=== PATIENT | female | born 1970 | race Caucasian/White ===

== ENCOUNTER 2020-11-22 07:57 | Outpatient (REF) | payer OTHER, SELFPAY ==
--- NOTE | ~2020-11-22 | MM_ITS ---
EXAMINATION: MM SCREENING DIGITAL BREAST TOMOSYNTHESIS, BILATERAL CLINICAL INFORMATION: Screening. Asymptomatic. Prior history left excisional biopsy 2016 for ADH. The lifetime risk of breast cancer based on the Tyrer-Cuzick Model is 34%. COMPARISON: Mammography: 10/20/2019, 10/12/2018, 09/24/2017 TECHNIQUE: Digital breast tomosynthesis is performed in both the craniocaudal and mediolateral oblique views along with computer-aided detection (CAD). Synthesized 2D images are generated from the tomosynthesis. Additional bilateral exaggerated CC views are provided. FINDINGS: The breasts are heterogeneously dense, which may obscure small masses (ACR BI-RADS breast composition Category c). There are no significant masses, abnormal calcifications, or other abnormalities. Scattered bilateral calcifications are again noted similar in distribution. The axilla and skin contours are unremarkable. There are no significant changes from prior exams. MM/MM tomosynthesis screening BI IMPRESSION: No mammographic evidence of malignancy. ASSESSMENT: BI-RADS 2: Benign RECOMMENDATION: 1. Routine annual mammography screening. 2. The lifetime risk of breast cancer based on the Tyrer-Cuzick Model is 34%. Additional annual adjunct screening with breast MRI may be of benefit in women with a risk score of 20% or greater. This patient's information was entered into a reminder system with a target due date for their next mammogram.
== END 2020-11-22 07:58 | disposition home or self-care (01) ==
LOC: HO.MAMMO 07:57
PROVIDERS: Visit Provider Internal Medicine
DX: Z12.31 Encounter for screening mammogram for malignant neoplasm of breast (principal)
CPT/HCPCS: 77063; 77067

== ENCOUNTER 2021-03-11 09:49 | Outpatient (REF) | payer OTHER, SELFPAY ==
[2021-03-11 11:29] LABS: Alanine Aminotransferase 40 U/L (0-31); Anion Gap 13 (12-20); Aspartate Amino Transferase 29 U/L (5-31); Blood Urea Nitrogen 13 mg/dL (9-16); Calcium 9.8 mg/dL (8.4-10.2); Carbon Dioxide 25 mmol/L (22-29); Chloride 108 mmol/L (96-108); Cholesterol 165 mg/dL; Estimated Glomerular Filt Rate > 60; Glucose Fasting 117 mg/dL (60-99); HDL Cholesterol 42 mg/dL; LDL Cholesterol Calculated 80 mg/dl; Potassium 4.9 mmol/L (3.3-5.1); Sodium 141 mmol/L (135-145); Triglycerides 218 mg/dL
[2021-03-11 11:39] LABS: Estimated Average Glucose 148 mg/dL; Hemoglobin A1c % 6.8 %
== END 2021-03-11 09:50 | disposition home or self-care (01) ==
LOC: HO.HMGCLDS 09:49
PROVIDERS: PCP Internal Medicine; Visit Provider Internal Medicine
DX: E11.29 Type 2 diabetes mellitus with other diabetic kidney complication (principal); E78.2 Mixed hyperlipidemia; I10 Essential (primary) hypertension; R80.9 Proteinuria, unspecified
CPT/HCPCS: 36415; 80048; 80061; 83036; 84450; 84460

== ENCOUNTER 2021-06-04 08:44 | Outpatient (REF) | payer OTHER, SELFPAY | END 2021-06-04 08:45 | disposition home or self-care (01) | LOC: HO.LAB 08:44 | PROVIDERS: PCP Internal Medicine; Referring Provider Internal Medicine; Visit Provider Surgery | DX: L98.9 Disorder of the skin and subcutaneous tissue, unspecified (principal) | CPT/HCPCS: 11104; 11420; 88305; 99202 ==

== ENCOUNTER → 2021-06-11 12:33 | Outpatient (BNVA) | payer OTHER, SELFPAY | PROVIDERS: PCP Internal Medicine; Referring Provider Internal Medicine; Visit Provider Surgery | DX: Z48.817 Encounter for surgical aftercare following surgery on the skin and subcutaneous tissue (principal); Z87.2 Personal history of diseases of the skin and subcutaneous tissue | CPT/HCPCS: 99212 ==

== ENCOUNTER 2021-07-11 07:58 | Outpatient (REF) | payer OTHER, SELFPAY ==
[2021-07-11 11:27] LABS: Estimated Average Glucose 128 mg/dL; Hemoglobin A1C 150.6977 umol/L; Hemoglobin A1c % 6.1 %
[2021-07-11 11:52] LABS: Alanine Aminotransferase 28 U/L (0-31); Anion Gap 15 (12-20); Aspartate Amino Transferase 24 U/L (5-31); Blood Urea Nitrogen 10 mg/dL (9-16); Calcium 9.6 mg/dL (8.4-10.2); Carbon Dioxide 25 mmol/L (22-29); Chloride 103 mmol/L (96-108); Cholesterol 160 mg/dL; Estimated Glomerular Filt Rate > 60; Glucose Fasting 119 mg/dL (60-99); HDL Cholesterol 40 mg/dL; LDL Cholesterol Calculated 86 mg/dl; Potassium 4.1 mmol/L (3.3-5.1); Sodium 139 mmol/L (135-145); Triglycerides 174 mg/dL
[2021-07-11 11:57] LABS: Creatinine Urine 45.33 mg/dL; Microalbum/Creatinine Ratio Ur 13.2 ug/mg cr
== END 2021-07-11 07:59 | disposition home or self-care (01) ==
LOC: HO.HMGCLDS 07:58
PROVIDERS: PCP Internal Medicine; Visit Provider Internal Medicine
DX: E11.29 Type 2 diabetes mellitus with other diabetic kidney complication (principal); E78.2 Mixed hyperlipidemia; R80.9 Proteinuria, unspecified; I10 Essential (primary) hypertension
CPT/HCPCS: 36415; 80048; 80061; 82043; 83036; 84450; 84460

== ENCOUNTER 2021-12-07 07:18 | Outpatient (REF) | payer OTHER, SELFPAY ==
--- NOTE | ~2021-12-07 | MM_ITS ---
EXAMINATION: MM SCREENING DIGITAL BREAST TOMOSYNTHESIS, BILATERAL CLINICAL INFORMATION: Screening. Asymptomatic. History left ADH status post excision 2015. The lifetime risk of breast cancer based on the Tyrer-Cuzick Model is 33%. COMPARISON: Mammography: 11/22/2020, 10/20/2019, 10/12/2018 TECHNIQUE: Digital breast tomosynthesis is performed in both the craniocaudal and mediolateral oblique views along with computer-aided detection (CAD). Synthesized 2D images are generated from the tomosynthesis. Additional left CC view is provided. FINDINGS: The breasts are heterogeneously dense, which may obscure small masses (ACR BI-RADS breast composition Category c). There is minor scarring on left consistent with the prior excisional biopsy. Parenchymal pattern is similar to prior studies. There is no interval mass or architectural abnormality. There are scattered punctate calcifications and some coarse and rim calcifications again noted. The axilla and skin contours are unremarkable. No significant changes. MM/MM tomosynthesis screening BI IMPRESSION: No mammographic evidence of malignancy. ASSESSMENT: BI-RADS 2: Benign RECOMMENDATION: Routine annual mammography screening. This patient's information was entered into a reminder system with a target due date for their next mammogram.
== END 2021-12-07 07:19 | disposition home or self-care (01) ==
LOC: HO.MAMMO 07:18
PROVIDERS: Visit Provider Internal Medicine
DX: Z12.31 Encounter for screening mammogram for malignant neoplasm of breast (principal)
CPT/HCPCS: 77063; 77067

== ENCOUNTER 2022-04-29 10:24 | Outpatient (REF) | payer OTHER, SELFPAY ==
[2022-04-29 12:19] LABS: Alanine Aminotransferase 37 U/L (0-31); Anion Gap 18 (12-20); Aspartate Amino Transferase 22 U/L (5-31); Blood Urea Nitrogen 11 mg/dL (9-16); Calcium 9.7 mg/dL (8.4-10.2); Carbon Dioxide 24 mmol/L (22-29); Chloride 105 mmol/L (96-108); Cholesterol 179 mg/dL; Estimated Glomerular Filt Rate > 60; Glucose Fasting 121 mg/dL (60-99); HDL Cholesterol 42 mg/dL; LDL Cholesterol Calculated 75 mg/dl; Potassium 4.9 mmol/L (3.3-5.1); Sodium 142 mmol/L (135-145); Triglycerides 311 mg/dL
[2022-04-29 12:28] LABS: Vitamin D 25-OH Total 62.3 ng/mL (>30)
== END 2022-04-29 10:25 | disposition home or self-care (01) ==
LOC: HO.HMGCLDS 10:24
PROVIDERS: PCP Internal Medicine; Visit Provider Internal Medicine
DX: E11.29 Type 2 diabetes mellitus with other diabetic kidney complication (principal); E78.2 Mixed hyperlipidemia; I10 Essential (primary) hypertension; R80.9 Proteinuria, unspecified; Z78.0 Asymptomatic menopausal state
CPT/HCPCS: 36415; 80048; 80061; 82306; 84450; 84460

== ENCOUNTER 2022-10-28 09:29 | Outpatient (REF) | payer OTHER, SELFPAY ==
[2022-10-28 12:26] LABS: Estimated Average Glucose 143 mg/dL; Hemoglobin A1c % 6.6 %
[2022-10-28 12:49] LABS: Creatinine Urine 19.96 mg/dL; Microalbumin Urine < 5.0 mg/L
[2022-10-28 16:45] LABS: Alanine Aminotransferase 41 U/L (0-31); Anion Gap 15 (12-20); Aspartate Amino Transferase 26 U/L (5-31); Blood Urea Nitrogen 8 mg/dL (9-16); Calcium 9.4 mg/dL (8.4-10.2); Carbon Dioxide 27 mmol/L (22-29); Chloride 106 mmol/L (96-108); Cholesterol 149 mg/dL; Estimated Glomerular Filt Rate > 60; Glucose Fasting 129 mg/dL (60-99); HDL Cholesterol 46 mg/dL; LDL Cholesterol Calculated 74 mg/dl; Potassium 4.6 mmol/L (3.3-5.1); Sodium 143 mmol/L (135-145); Triglycerides 148 mg/dL
[2022-10-28 16:53] LABS: Vitamin D 25-OH Total 56.7 ng/mL (>30)
== END 2022-10-28 09:30 | disposition home or self-care (01) ==
LOC: HO.HMGCLDS 09:29
PROVIDERS: PCP Internal Medicine; Visit Provider Internal Medicine
DX: E11.29 Type 2 diabetes mellitus with other diabetic kidney complication (principal); R80.9 Proteinuria, unspecified; I10 Essential (primary) hypertension; E78.2 Mixed hyperlipidemia; N95.9 Unspecified menopausal and perimenopausal disorder; Z78.0 Asymptomatic menopausal state
CPT/HCPCS: 36415; 80048; 80061; 82043; 82306; 83036; 84450; 84460

== ENCOUNTER 2022-11-04 14:30 | Outpatient (AMB) | payer OTHER, SELFPAY ==
--- NOTE | 2022-11-04 14:58 | A.OFFPC_ITS ---
Vital Signs 11/04/22 15:34 Height 5 ft 8 in Weight 175 lb BMI 26.6 BP 128/70 Blood Pressure Location Lt brachial Position Sitting Pulse 77 Pulse Source Pulse Oximeter Pulse Oximetry (%) 97 Oxygen Delivery Method Room Air Intake Visit Reasons: ffup dm ,lipids 6 Month Intake Note: Pt is here today for her DM and lipids Allergies No Known Allergies [No Known Allergies*] Allergy (Verified 05/05/23 14:47) seasonal Allergy (Unknown, Uncoded 05/05/23 14:47) sneezing Medication List - Last Reconciled 05/05/23 by Sveta Swenson MD ascorbic acid (vitamin C) 250 mg PO DAILY atorvastatin 10 mg PO DAILY blood sugar diagnostic (FreeStyle Lite Strips) Check fasting blood sugar twice a day before meals blood sugar diagnostic (FreeStyle Lite Strips) check blood glucose twice a day before meals blood-glucose meter (FreeStyle Lite Meter kit) Check Fasting blood sugar twice a day before meals, a.m. and p.m. cetirizine (Zyrtec) 10 mg PO DAILY PRN cholecalciferol (vitamin D3) 25 mcg PO DAILY estradiol 0.01%(0.1mg/gram) (Estrace) 1 g vaginal 3XW lancets (FreeStyle Lancets) Check fasting blood sugar before meals, a.m. and p.m. lisinopril 5 mg PO DAILY metformin 1,000 mg PO BID 90 days multivitamin 1 tab PO DAILY omega-3 acid ethyl esters 2 caps PO BID Tobacco use date assessed: 11/04/22 HPI ffup dm ,lipids 6 Month HPI Details 53-year-old lady here today for follow-u p on her diabetes mellitus, hypertension dyslipidemia. She has been compliant with taking her medications, has no complaints at present time. [facility] Medical History (Updated 05/05/23 @ 17:53 by Sveta Swenson MD) Postmenopausal atrophic vaginitis Dyspareunia in female Loss of libido Skin lesion of neck Colon cancer screening Duodenal bulb ulcer History of uterine prolapse Seasonal allergies Type 2 diabetes mellitus with microalbuminuria, without long-term current use of insulin Essential hypertension Mixed dyslipidemia Surgical History History of tubal ligation History of tonsillectomy History of lumpectomy of left breast History of left breast biopsy History of rhinoplasty History of total vaginal hysterectomy Family History Father History of drug overdose Substance use disorder Mother Cervical cancer Substance use disorder Mental health disorder Brother Diabetes mellitus Maternal Grandmother Breast cancer Maternal Aunt Uterine cancer Social History Housing: House Alcohol intake: current Alcohol intake frequency: holidays/special occasions only Patient Tobacco Use Status: Former Tobacco user Years Smoked: 20 yrs e-Cigarette/Vaping Use: Currently Using service: No Current occupational status: previously employed Cognitive needs: No Hearing needs: No Vision needs: Yes Questionnaire PHQ-9 Over the last 2 weeks, how often have you been bothered by any of the following problems? 1. Little interest or pleasure in doing things: not at all 2. Feeling down, depressed, or hopeless: not at all 3. Trouble falling or staying asleep, or sleeping too much: several days 4. Feeling tired or having little energy: several days 5. Poor appetite or overeating: several days 6. Feeling bad about yourself - or that you are a failure or have let yourself or your family down: not at all 7. Trouble concentrating on things, such as reading the newspaper or watching television: not at all 8. Moving or speaking so slowly that other people could have noticed. Or the opposite - being so fidgety or restless that you have been moving around a lot more than usual: not at all 9. Thoughts that you would be better off or of hurting yourself in some way: not at all Total score: 3 Depression Screening Interpretation: Negative [id number] - PHQ-9 Billing: Yes Source: Developed by Drs. Malik Hall, Chela Worley, Arsalan Morris and colleagues, with an educational sid from [employer]. Thrive Questionnaire Declines Thrive assessment: No Date Thrive assessed: 11/04/22 I am a: Patient What is your living situation today?: I have a steady place to live Within the past 12 months, did the food you bought not last and you didn't have the money to get more?: Never true Within the past 12 months, did you worry whether your food would run out before you got money to buy more?: Never true Do you have trouble paying for medicines?: No Do you have trouble getting transportation to medical appointments?: No Do you have trouble paying your heating and electricity bill?: No Do you have trouble taking care of your child, family member or friend?: No Do you have trouble with day-to-day activities such as bathing, preparing meals, shopping, managing finances, etc.?: No Are you currently unemployed and looking for a job?: No Are you interested in more education?: No ZIGGY-7 AMB Questionnaire ZIGGY-7 Date ZIGGY - 7 assessed: 11/04/22 Feeling nervous, anxious, or on edge: 0 = Not at all Not being able to stop or control worryin = Several days Worrying too much about different things: 1 = Several days Trouble relaxin = Not at all Being so restless that it is hard to sit still: 0 = Not at all Becoming easily annoyed or irritable: 0 = Not at all Feeling afraid as if something awful might happen: 0 = Not at all Total ZIGGY-7 score (0-4 normal; 5-9 mild; 10-14 moderate; 15-21 severe): 2 Source: Developed by Drs. Malik Hall, Chela Worley, Arsalan Morris and colleagues, with an educational sid from [employer]. Review of Systems Const Denies body aches, Denies fatigue, Denies fever(s) and Denies weakness Eyes Reports no additional complaints and Denies change in vision ENT Reports no additional complaints Card Denies chest pain, Denies lightheadedness, Denies palpitations and Denies dyspnea Resp Denies cough and Denies dyspnea GI Denies abdominal pain, Denies change in bowel habits and Denies heartburn Denies urinary frequency, Denies dysuria and Denies urinary urgency Musc Reports no additional complaints Skin/Breast Denies lesions and Denies rash Neuro Denies Sensory deficit (Neuro) and Denies weakness Endo Denies fatigue, Denies polydipsia, Denies polyuria and Denies palpitations Efrem/Lymph Reports no additional complaints Physical exam (Primary Care) Vital Signs: Last Vital Signs Pulse 77 11/04/22 15:34 BP 128/70 11/04/22 15:34 Pulse Ox 97 11/04/22 15:34 Oxygen Delivery Method Room Air 11/04/22 15:34 BMI result Body Mass Index 26.6 Tobacco/Smoking Status: Tobacco use Status Tobacco use date assessed 11/04/22 11/04/22 15:00 Patient Tobacco Use Status Former Tobacco user 11/04/22 15:00 e-Cigarette/Vaping Use Currently Using 11/04/22 15:00 PHQ-9: PHQ-9 Score PHQ-9: Total score 3 11/04/22 16:25 Depression Screening Interpretation: Negative Thrive Assessment: Date of Thrive Assessment Date Thrive assessed 11/04/22 11/04/22 15:37 Const Other: Alert oriented x3, no acute distress noted ambulatory with normal gait Orientation/consciousness: patient oriented x3 Neck Other: Supple, no lymphadenopathy, thyroid gland nonpalpable Neck: Yes no meningeal signs Resp Auscultation: clear to auscultation bilaterally Cardio Other: S1-S2 present regular rate with GI Inspection: Yes normal to inspection Palpation (GI): Soft to palpation, nontender, no guarding and no masses Skin General skin exam: no rashes or lesions noted Neuro General: patient oriented x3, gait normal, moves all extremities, Normal light touch and pain sensation, no meningeal signs, no focal motor deficits and CN's II-XI intact bilaterally Sensory Exam: No Sensory deficit (Neuro) Extrem General: Yes full ROM, Yes no joint enlargement, Yes no clubbing, cyanosis or edema, Yes no calf tenderness and Yes normal gait Results Reviewed Results Reviewed: ENTERED: 10/28/22 SIMONA REED: ORDERED: Met Prof Fast, AST, ALT, Lipid Panel, Vitamin D 25-OH Test Result Flag Reference Site Sodium 143 135-145 mmol/L Potassium 4.6 3.3-5.1 mmol/L CL 106 96-108 mmol/L CO2 27 22-29 mmol/L Gap 15 12-20 BUN 8 L 9-16 mg/dL Creat 0.66 0.5-1.4 mg/dL EGFR > 60 NOTE: For [place] individuals, multiply the result by 1.210. Chronic Kidney Disease: Estimated GFR < 60 mL/min/1.73m2 Severe Kidney Disease: Estimated GFR < 15 mL/min/1.73m2 FBS 129 H 60-99 mg/dL A fasting glucose of 126 mg/dl or greater on more than one occasion is considered diagnostic of diabetes. CA 9.4 8.4-10.2 mg/dL AST (GOT) 26 5-31 U/L ALT (GPT) 41 H 0-31 U/L Triglyceride 148 mg/dL Desirable Triglyceride: less than 150 mg/dL Borderline High Triglyceride 150-199 mg/dL High Triglyceride: 200-499 mg/dL Very High Triglyceride: greater than or equal to 5OO mg/dL Chol 149 mg/dL Desirable Cholesterol: less than 200 mg/dL Borderline High Cholesterol: 200-239 mg/dL High Cholesterol: greater than 239 mg/dL LDL Calculated 74 mg/dl Desirable LDL: less than 100 mg/dL Near Optimal/Above Optimal LDL: 110-129 mg/dL Borderline High LDL: 130-159 mg/dL High LDL: 160-189 mg/dL Very High LDL: greater than or equal to 190 mg/dL HDL 46 mg/dL Desirable HDL: greater than 40 mg/dL Note: This HDL assay may give artificially low results in patients with liver disease. Vit D 25-OH Tot 56.7 >30 ng/mL Health Based Reference Values* < 20 ng/mL Deficient 20-30 ng/mL Insufficient > 30 ng/mL Sufficient Laboratory Tests 10/28/22 09:46 Estimat Average Glucose 143 Hemoglobin A1c % 6.6 Assessment and Plan Assessment & Plan (1) Type 2 diabetes mellitus with microalbuminuria, without long-term current use of insulin: Code(s): E11.29 - Type 2 diabetes mellitus with other diabetic kidney complication; R80.9 - Proteinuria, unspecified Plan: Recent lab results reviewed with patient, with sugar and hemoglobin A1c stable and at goal. Continue metformin 1000 mg 1 tablet twice a day with meals. continue to check fasting blood sugar at home, maintain log and bring to next appointment for review. Reinforced diabetic diet and regular exercise with patient. Counseled regarding importance of yearly diabetes retinopathy screening. Patient advised to inspect feet daily, for any signs of injury, callus or infection. Compliance with diet and regular exercise again stressed. Blood pressure goal is less than 130/80, goal LDL is less than 100 and goal hemoglobin A1c is less than 7% follow-up appointment made in-5--months, after fasting labs done. (2) Essential hypertension: Code(s): I10 - Essential (primary) hypertension Plan: Blood pressure at goal of less than 130/80. Continue with current medication. Reinforced importance of following a low sodium diet, getting regular exercise, and lowering stress levels. (3) Mixed dyslipidemia: Code(s): E78.2 - Mixed hyperlipidemia Plan: Reviewed recent fasting lipid profile with patient with levels within normal . Continue with taking atorvastatin 10 mg daily and [place] 3 fatty acid supplements , in addition to adherence to low-cholesterol diet and regular exercise, at least 30 minutes 3 to 4 times a week. Advised patient to make healthy food choices, eat more fruits, vegetables, whole grains, wild caught fish and low-fat dairy. Limit amount of meat and fried or fatty food products, as well as processed foods and fast foods. Follow-up scheduled with repeat fasting lipid panel in 5 months. Orders: Orders Hemoglobin A1c 03/22/23 E11.29 - Type 2 diabetes mellitus with other diabetic kidney complication, R80.9 - Proteinuria, unspecified, I10 - Essential (primary) hypertension, E78.2 - Mixed hyperlipidemia, N95.9 - Unspecified menopausal and perimenopausal disorder Alanine Aminotransferase 03/22/23 E11.29 - Type 2 diabetes mellitus with other diabetic kidney complication, R80.9 - Proteinuria, unspecified, I10 - Essential (primary) hypertension, E78.2 - Mixed hyperlipidemia, N95.9 - Unspecified menopausal and perimenopausal disorder Basic Metabolic Panel Fasting 03/22/23 E11.29 - Type 2 diabetes mellitus with other diabetic kidney complication, R80.9 - Proteinuria, unspecified, I10 - Essential (primary) hypertension, E78.2 - Mixed hyperlipidemia, N95.9 - Unspecified menopausal and perimenopausal disorder Microalbumin, Random (w Creat) 03/22/23 E11.29 - Type 2 diabetes mellitus with other diabetic kidney complication, R80.9 - Proteinuria, unspecified, I10 - Essential (primary) hypertension, E78.2 - Mixed hyperlipidemia, N95.9 - Unspecified menopausal and perimenopausal disorder Aspartate Amino Transferase 03/22/23 E11.29 - Type 2 diabetes mellitus with other diabetic kidney complication, R80.9 - Proteinuria, unspecified, I10 - Essential (primary) hypertension, E78.2 - Mixed hyperlipidemia, N95.9 - Unspecified menopausal and perimenopausal disorder Lipid Panel 03/22/23 E11.29 - Type 2 diabetes mellitus with other diabetic kidney complication, R80.9 - Proteinuria, unspecified, I10 - Essential (primary) hypertension, E78.2 - Mixed hyperlipidemia, N95.9 - Unspecified menopausal and perimenopausal disorder Vitamin D 25-OH Total 03/22/23 E11.29 - Type 2 diabetes mellitus with other diabetic kidney complication, R80.9 - Proteinuria, unspecified, I10 - Essential (primary) hypertension, E78.2 - Mixed hyperlipidemia, N95.9 - Unspecified menopausal and perimenopausal disorder Coding Level of Care Code Est Pt Level 3 (98956) Diagnoses Type 2 diabetes mellitus with microalbuminuria, without long-term current use of insulin E11.29; R80.9 Essential hypertension I10 Mixed dyslipidemia E78.2
[2022-11-04 15:34] VITALS: BP 128/70; PULSE 77; O2SAT 97; BMI 26.6
== END 2022-11-04 16:26 | disposition home or self-care (01) ==
LOC: HO.HMGC 14:30
PROVIDERS: PCP Internal Medicine; Visit Provider Internal Medicine
DX: E11.29 Type 2 diabetes mellitus with other diabetic kidney complication (principal); R80.9 Proteinuria, unspecified; I10 Essential (primary) hypertension; E78.2 Mixed hyperlipidemia
CPT/HCPCS: 99213

== ENCOUNTER 2022-12-25 07:36 | Outpatient (REF) | payer OTHER, SELFPAY ==
--- NOTE | ~2022-12-25 | MM_ITS ---
EXAMINATION: MM SCREENING DIGITAL BREAST TOMOSYNTHESIS, BILATERAL CLINICAL INFORMATION: Screening. Asymptomatic. History left breast ADH status post excision, 2016. The lifetime risk of breast cancer based on the Tyrer-Cuzick Model is 33%. COMPARISON: Multiple prior mammography exams, most recent 12/07/2021. TECHNIQUE: Digital breast tomosynthesis is performed in both the craniocaudal and mediolateral oblique views along with computer-aided detection (CAD). Synthesized 2D images are generated from the tomosynthesis. FINDINGS: The breasts are heterogeneously dense, which may obscure small masses (ACR BI-RADS breast composition Category c). There are no significant masses, abnormal calcifications, or other abnormalities. No interval architectural abnormality. The axilla and skin contours are unremarkable. Again, there are scattered bilateral round and some punctate and coarse calcifications. Left breast has some interval calcifications posterior 6:00 left breast likely partly related to superimposed digital processing artifact pseudocalcification. Patient will be recalled for additional imaging with magnification views to fully characterize. MM/MM tomosynthesis screening BI IMPRESSION: Left: -Calcifications with probable superimposed digital processing artifact posterior central left breast. Right: -No mammographic evidence of malignancy. ASSESSMENT: BI-RADS 0: Incomplete - Need Additional Imaging Evaluation RECOMMENDATION: 1. Additional views left breast (magnification CC, magnification ML). 2. Radiology department staff will contact the patient for additional imaging. This patient's information was entered into a reminder system with a target due date for their next mammogram.
== END 2022-12-25 07:37 | disposition home or self-care (01) ==
LOC: HO.MAMMO 07:36
PROVIDERS: PCP Internal Medicine; Visit Provider Internal Medicine
DX: Z12.31 Encounter for screening mammogram for malignant neoplasm of breast (principal)
CPT/HCPCS: 77063; 77067

== ENCOUNTER 2023-01-11 14:30 | Outpatient (REF) | payer OTHER, SELFPAY ==
--- NOTE | ~2023-01-11 | MM_ITS ---
EXAMINATION: MM DIAGNOSTIC DIGITAL MAMMOGRAPHY, LEFT CLINICAL INFORMATION: Recall from screening for question of increased calcifications posterior central inferior left breast. Prior history left ADH status post excision 2015. COMPARISON: Prior mammography exams including most recent 12/25/2022. TECHNIQUE: Digital mammography is performed in the following views: Magnification CC, magnification ML. FINDINGS: The breasts are heterogeneously dense, which may obscure small masses (ACR BI-RADS breast composition Category c). There are a few fine punctate round calcifications in the posterior lower left breast likely stable from prior standard mammography exams without magnification. There is no ductal distribution or pleomorphic types. Results are discussed with the patient at time of visit. As a precaution given the prior history ADH, short interval follow-up left mammography will be requested to include magnification views. MM/MM added views LT IMPRESSION: Probable chronic stable benign calcifications lower posterior left breast. ASSESSMENT: BI-RADS 3: Probably Benign RECOMMENDATION: Diagnostic left mammography in 6 months. This patient's information was entered into a reminder system with a target due date for their next mammogram.
== END 2023-01-11 14:31 | disposition home or self-care (01) ==
LOC: HO.MAMMO 14:30
PROVIDERS: PCP Internal Medicine; Visit Provider Internal Medicine
DX: R92.1 Mammographic calcification found on diagnostic imaging of breast (principal)
CPT/HCPCS: 77065

== ENCOUNTER 2023-05-05 14:13 | Outpatient (AMB) | payer OTHER, SELFPAY ==
[2023-05-05 14:15] VITALS: BP 132/78; PULSE 78; O2SAT 98; BMI 26.6
--- NOTE | 2023-05-05 14:15 | A.OFFPC_ITS ---
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 Accompanied by: Self / Same As Patient Allergies No Known Allergies [No Known Allergies*] Allergy (Verified 05/05/23 14:47) seasonal Allergy (Unknown, Uncoded 05/05/23 14:47) sneezing Medication List - Last Reconciled 05/05/23 by Sveta Swenson MD ascorbic acid (vitamin C) 250 mg PO DAILY atorvastatin 10 mg PO DAILY blood sugar diagnostic (FreeStyle Lite Strips) Check fasting blood sugar twice a day before meals blood sugar diagnostic (FreeStyle Lite Strips) check blood glucose twice a day before meals blood-glucose meter (FreeStyle Lite Meter kit) Check Fasting blood sugar twice a day before meals, a.m. and p.m. cetirizine (Zyrtec) 10 mg PO DAILY PRN cholecalciferol (vitamin D3) 25 mcg PO DAILY estradiol 0.01%(0.1mg/gram) (Estrace) 1 g vaginal 3XW lancets (FreeStyle Lancets) Check fasting blood sugar before meals, a.m. and p.m. lisinopril 5 mg PO DAILY metformin 1,000 mg PO BID 90 days multivitamin 1 tab PO DAILY omega-3 acid ethyl esters 2 caps PO BID Tobacco use date assessed: 05/05/23 Dental Screening Dental Screen Date: 05/05/23 Did you have a dental visit in the last 12 months?: Yes Did you have a dental problem in the last 6 months where you did not have access to dental care?: No Was dental information given to patient?: Patient has dentist HPI Annual PE HPI Details 53-year-old lady with history of uterine and rectal prolapse status post total vaginal hysterectomy in 2016, has hypercholesterolemia, diabetes mellitus, and hypertension, here today for her physical exam. She has been feeling well, with no complaints at present time. Has been compliant with taking her medications, but not so much with exercise. She is up-to-date with her screening mammogram, recently seen by her [facility] for follow-up on her postmenopausal traffic vaginitis and loss of libido.. She is also up-to-date with her screening colonoscopy. [facility] Medical History (Updated 05/05/23 @ 17:53 by Sveta Swenson MD) Postmenopausal atrophic vaginitis Dyspareunia in female Loss of libido Skin lesion of neck Colon cancer screening Duodenal bulb ulcer History of uterine prolapse Seasonal allergies Type 2 diabetes mellitus with microalbuminuria, without long-term current use of insulin Essential hypertension Mixed dyslipidemia Surgical History History of tubal ligation History of tonsillectomy History of lumpectomy of left breast History of left breast biopsy History of rhinoplasty History of total vaginal hysterectomy Family History Father History of drug overdose Substance use disorder Mother Cervical cancer Substance use disorder Mental health disorder Brother Diabetes mellitus Maternal Grandmother Breast cancer Maternal Aunt Uterine cancer Social History Housing: House Alcohol intake: current Alcohol intake frequency: holidays/special occasions only Patient Tobacco Use Status: Former Tobacco user Years Smoked: 20 yrs e-Cigarette/Vaping Use: Currently Using service: No Current occupational status: previously employed Cognitive needs: No Hearing needs: No Vision needs: Yes Questionnaire PHQ-9 Over the last 2 weeks, how often have you been bothered by any of the following problems? 1. Little interest or pleasure in doing things: not at all 2. Feeling down, depressed, or hopeless: not at all 3. Trouble falling or staying asleep, or sleeping too much: not at all 4. Feeling tired or having little energy: not at all 5. Poor appetite or overeating: not at all 6. Feeling bad about yourself - or that you are a failure or have let yourself or your family down: not at all 7. Trouble concentrating on things, such as reading the newspaper or watching television: not at all 8. Moving or speaking so slowly that other people could have noticed. Or the opposite - being so fidgety or restless that you have been moving around a lot more than usual: not at all 9. Thoughts that you would be better off or of hurting yourself in some way: not at all Total score: 0 Depression Screening Interpretation: Negative 23599 - PHQ-9 Billing: Yes Source: Developed by Drs. Malik Hall, Chela Worley, Arsalan Morris and colleagues, with an educational sid from [employer] Thrive Questionnaire Date Thrive assessed: 05/05/23 I am a: Patient What is your living situation today?: I have a steady place to live Within the past 12 months, did the food you bought not last and you didn't have the money to get more?: Never true Within the past 12 months, did you worry whether your food would run out before you got money to buy more?: Never true Do you have trouble paying for medicines?: No Do you have trouble getting transportation to medical appointments?: No Do you have trouble paying your heating and electricity bill?: No Do you have trouble taking care of your child, family member or friend?: No Do you have trouble with day-to-day activities such as bathing, preparing meals, shopping, managing finances, etc.?: No Are you currently unemployed and looking for a job?: No Are you interested in more education?: No Please select the resources that you would like help with: None Currently or been in a relationship where the following occur: no concerns reported AUDIT C Alcohol Use Questionnaire (AUDIT-C) 1. How often do you have a drink containing alcohol?: Never 3. How often do you have six or more drinks on one occasion?: Never Total Score: 0 ZIGGY-7 AMB Questionnaire ZIGGY-7 Date ZIGGY - 7 assessed: 05/05/23 Feeling nervous, anxious, or on edge: 0 = Not at all Not being able to stop or control worryin = Not at all Worrying too much about different things: 0 = Not at all Trouble relaxin = Not at all Being so restless that it is hard to sit still: 0 = Not at all Becoming easily annoyed or irritable: 0 = Not at all Feeling afraid as if something awful might happen: 0 = Not at all Total ZIGGY-7 score (0-4 normal; 5-9 mild; 10-14 moderate; 15-21 severe): 0 Source: Developed by Chela Neumann Kurt Kroenke and colleagues, with an educational sid from [employer] Review of Systems Const Denies body aches, Denies fatigue, Denies fever(s) and Denies weakness Eyes Reports no additional complaints ENT Reports no additional complaints Card Denies chest pain, Denies lightheadedness, Denies palpitations and Denies dyspnea Resp Denies cough and Denies dyspnea GI Denies abdominal pain, Denies change in bowel habits and Denies heartburn Denies urinary frequency, Denies dysuria and Denies urinary urgency Musc Reports no additional complaints Skin/Breast Denies breast pain, Denies breast mass, Denies lesions and Denies rash Neuro Denies Sensory deficit (Neuro) and Denies weakness Psych Reports no additional complaints Endo Denies fatigue, Denies polydipsia, Denies polyuria and Denies palpitations Efrem/Lymph Reports no additional complaints Aller/Immun Reports no additional complaints Physical exam (Primary Care) Vital Signs: Last Vital Signs Pulse 78 05/05/23 14:15 BP 132/78 05/05/23 14:15 Pulse Ox 98 05/05/23 14:15 BMI result Body Mass Index 26.6 Tobacco/Smoking Status: Tobacco use Status Tobacco use date assessed 05/05/23 05/05/23 14:17 Patient Tobacco Use Status Former Tobacco user 05/05/23 14:17 e-Cigarette/Vaping Use Currently Using 05/05/23 14:17 PHQ-9: PHQ-9 Score PHQ-9: Total score 0 05/05/23 14:49 Depression Screening Interpretation: Negative Thrive Assessment: Date of Thrive Assessment Date Thrive assessed 05/05/23 05/05/23 14:20 Currently or been in a relationship where the following occur: no concerns reported Const Other: Alert oriented x3, no acute distress noted ambulatory with normal gait Orientation/consciousness: patient oriented x3 HENRI Head: Yes normocephalic Ears: hearing grossly normal bilaterally, external ears normal, TM's normal bilaterally and EAC's normal General nose exam: Normal external nose present Face and sinus: Yes face symmetric Mouth: Normal oral and palatal mucosa present, oropharynx normal and moist mucous membranes Eyes General: appearance normal, both eyes and all related structures Pupils: Equal, round and reactive pupils present EOM: EOMs intact bilaterally Neck Other: Supple, no lymphadenopathy, thyroid gland nonpalpable Neck: Yes no meningeal signs Chest Breast/axilla palpation: normal palpation of the breasts Resp Auscultation: clear to auscultation bilaterally Cardio Other: S1-S2 present regular rate with GI Inspection: Yes normal to inspection Palpation (GI): Soft to palpation, nontender, no guarding and no masses General: Yes no CVA tenderness Back/Spine/Pelvis Back: no CVA tenderness and No back tenderness Skin General skin exam: no rashes or lesions noted Neuro General: patient oriented x3, gait normal, moves all extremities, Normal light touch and pain sensation, no meningeal signs, no focal motor deficits and CN's II-XI intact bilaterally Cranial nerves: Yes Equal, round and reactive pupils present Sensory Exam: No Sensory deficit (Neuro) Extrem General: Yes full ROM, Yes no clubbing, cyanosis or edema and Yes normal gait Psych Appearance: grossly normal Mental Status: mental status grossly normal Speech and movement: Normal speech and movement present Affect: normal affect Attitude: cooperative Thought process: Normal thought process present Assessment and Plan Assessment & Plan (1) Annual visit for general adult medical examination with abnormal findings: Code(s): Z00.01 - Encounter for general adult medical examination with abnormal findings Plan: Reminded to get fasting labs done. Continue with regular dental visit every 6 months and yearly eye exams. Take adequate calcium in diet and vitamin-D 3 at 2 000 IU per cap once a day, in addition to weight-bearing exercises to help maintain good muscle tone and weight control. Instructed to do self-breast exam, and continue with yearly mammogram. Up-to-date with her screening colonoscopy. Reminded to get her flu vaccine, and COVID booster, up-to-date with her shingles vaccine, and pneumonia vaccination as well as Tdap. (2) Postmenopausal atrophic vaginitis: Code(s): N95.2 - Postmenopausal atrophic vaginitis Plan: Continue estradiol 0.01% cream 1 g vaginally 3 times a week (3) Type 2 diabetes mellitus with microalbuminuria, without long-term current use of insulin: Code(s): E11.29 - Type 2 diabetes mellitus with other diabetic kidney complication; R80.9 - Proteinuria, unspecified Plan: Reminded to get fasting labs done, already ordered. Continue with metformin 1000 mg 1 tablet twice a day. Reinforced diabetic diet and regular exercise with patient. Counseled regarding importance of yearly diabetes retinopathy screening. Patient advised to inspect feet daily, for any signs of injury, callus or infection. Compliance with diet and regular exercise again stressed. Blood pressure goal is less than 130/80, goal LDL is less than 100 and goal hemoglobin A1c is less than 7% (4) Essential hypertension: Code(s): I10 - Essential (primary) hypertension Plan: Blood pressure at goal of less than 130/80. Continue with lisinopril 5 mg daily Reinforced importance of following a low sodium diet, getting regular exercise, and lowering stress levels. (5) Mixed dyslipidemia: Code(s): E78.2 - Mixed hyperlipidemia Plan: Get fasting labs done. Continue with atorvastatin 10 mg once a day, in addition to adhering to low-cholesterol diet and getting regular exercise. Coding Level of Care Code Est Pt Prev Care 40-64y(43670) Diagnoses Annual visit for general adult medical examination with abnormal findings Z0 0.01 Postmenopausal atrophic vaginitis N95.2 Type 2 diabetes mellitus with microalbuminuria, without long-term current use of insulin E11.29; R80.9 Essential hypertension I10 Mixed dyslipidemia E78.2
== END 2023-05-05 15:21 | disposition home or self-care (01) ==
PROVIDERS: Visit Provider Internal Medicine
DX: Z00.00 Encounter for general adult medical examination without abnormal findings (principal); E11.29 Type 2 diabetes mellitus with other diabetic kidney complication; I10 Essential (primary) hypertension; N95.2 Postmenopausal atrophic vaginitis; R80.9 Proteinuria, unspecified; E78.2 Mixed hyperlipidemia
CPT/HCPCS: 99396

== ENCOUNTER 2023-05-11 07:09 | Outpatient (REF) | payer OTHER, SELFPAY ==
[2023-05-11 12:24] LABS: Alanine Aminotransferase 79 U/L (0-31); Anion Gap 14 (12-20); Aspartate Amino Transferase 60 U/L (5-31); Blood Urea Nitrogen 8 mg/dL (9-16); Calcium 10.6 mg/dL (8.4-10.2); Carbon Dioxide 26 mmol/L (22-29); Chloride 106 mmol/L (96-108); Cholesterol 173 mg/dL (<200); Estimated Average Glucose 137 mg/dL; Estimated Glomerular Filt Rate > 60; Glucose Fasting 145 mg/dL (60-99); HDL Cholesterol 46 mg/dL (>40); Hemoglobin A1C 151.5738 umol/L; Hemoglobin A1c % 6.4 % (<6.0); LDL Cholesterol Calculated 74 mg/dL (<100); Potassium 4.3 mmol/L (3.3-5.1); Sodium 142 mmol/L (135-145); Triglycerides 265 mg/dL (<150)
[2023-05-11 12:43] LABS: Vitamin D 25-OH Total 94.7 ng/mL (>30)
[2023-05-11 13:09] LABS: Creatinine Urine 166.33 mg/dL; Microalbum/Creatinine Ratio Ur 18.6 ug/mg cr (<30)
== END 2023-05-11 07:10 | disposition home or self-care (01) ==
LOC: HO.HMGCLDS 07:09
PROVIDERS: PCP Internal Medicine; Visit Provider Internal Medicine
DX: E11.29 Type 2 diabetes mellitus with other diabetic kidney complication (principal); R80.9 Proteinuria, unspecified; E78.2 Mixed hyperlipidemia; N95.9 Unspecified menopausal and perimenopausal disorder; I10 Essential (primary) hypertension
CPT/HCPCS: 36415; 80048; 80061; 82043; 82306; 82570; 83036; 84450; 84460

== ENCOUNTER 2023-07-13 06:58 | Outpatient (REF) | payer OTHER, SELFPAY ==
[2023-07-13 12:20] LABS: Estimated Average Glucose 148 mg/dL; Hemoglobin A1c % 6.8 % (<6.0)
[2023-07-13 12:23] LABS: Alanine Aminotransferase 46 U/L (0-31); Albumin Level 4.6 g/dL (3.5-5.0); Alkaline Phosphatase 58 U/L (39-117); Anion Gap 12 (12-20); Aspartate Amino Transferase 34 U/L (5-31); Bilirubin Total 0.7 mg/dL (0.0-1.0); Blood Urea Nitrogen 10 mg/dL (9-16); Calcium 9.8 mg/dL (8.4-10.2); Carbon Dioxide 28 mmol/L (22-29); Chloride 106 mmol/L (96-108); Cholesterol 150 mg/dL (<200); Estimated Glomerular Filt Rate > 60; Glucose Fasting 147 mg/dL (60-99); HDL Cholesterol 46 mg/dL (>40); LDL Cholesterol Calculated 68 mg/dL (<100); Potassium 4.7 mmol/L (3.3-5.1); Sodium 141 mmol/L (135-145); Total Protein 7.8 g/dL (6.5-8.0); Triglycerides 182 mg/dL (<150)
[2023-07-15 11:59] LABS: Calcium (PTHI) 9.7 mg/dL (8.6-10.4); PTHI 37 pg/mL (16-77)
[2023-07-15 17:03] LABS: Calcium, Ionized 5.1 mg/dL (4.7-5.5)
== END 2023-07-13 06:59 | disposition home or self-care (01) ==
LOC: HO.HMGCLDS 06:58
PROVIDERS: PCP Internal Medicine; Visit Provider Internal Medicine
DX: R74.01 Elevation of levels of liver transaminase levels (principal)
CPT/HCPCS: 36415; 80053; 80061; 82330; 83036; 83970

== ENCOUNTER 2023-07-13 10:26 | Outpatient (REF) | payer OTHER, SELFPAY ==
--- NOTE | ~2023-07-13 | MM_ITS ---
EXAMINATION: MM DIAGNOSTIC DIGITAL BREAST TOMOSYNTHESIS, LEFT CLINICAL INFORMATION: Follow-up left calcifications versus digital processing artifact lower mid left breast, posterior one third. COMPARISON: Mammography: 01/11/2023, 12/25/2022 (BI-RADS 0), 12/07/2021, 11/22/2020, and dating back to 2017. TECHNIQUE: Digital breast tomosynthesis is performed in both the craniocaudal and mediolateral oblique views along with computer-aided detection (CAD). Synthesized 2D images are generated from the tomosynthesis. In addition, left CCA 2-D magnification views were obtained x3, and left ML 2-D magnification views were obtained x3. FINDINGS: The breasts are heterogeneously dense, which may obscure small masses (ACR BI-RADS breast composition Category c). Calcifications in the lower and mid left breast, far posterior one third, are identified in 2 distinct closely abutting groups, and have a punctate predominantly benign morphology. No branching, linear, or ductal forms. These calcifications are probably benign, and six-month interval follow-up recommended to include standard magnification views when the patient is scheduled for bilateral screening exam. MM/MM tomosynthesis diagnostic LT IMPRESSION: Calcifications in the far posterior inferior mid left breast are probably benign, and 6 month interval follow-up standard magnification views recommended. ASSESSMENT: BI-RADS BI-RADS 3 - Probably benign finding(s) - 6 month follow-up suggested RECOMMENDATION: 6 Month F/U Results were provided to the patient at time of visit by the technologist. This patient's information was entered into a reminder system with a target due date for their next mammogram.
== END 2023-07-13 10:27 | disposition home or self-care (01) ==
LOC: HO.MAMMO 10:26
PROVIDERS: PCP Internal Medicine; Visit Provider Internal Medicine
DX: R92.1 Mammographic calcification found on diagnostic imaging of breast (principal)
CPT/HCPCS: 77061; 77065

== ENCOUNTER → 2023-07-13 11:30 | Outpatient (BNV) | payer OTHER, SELFPAY | PROVIDERS: PCP Internal Medicine; Visit Provider Radiology Diagnostic Radiology | DX: R92.1 Mammographic calcification found on diagnostic imaging of breast (principal) | CPT/HCPCS: 77061; 77065 ==

== ENCOUNTER 2024-01-12 14:27 | Outpatient (REF) | payer OTHER, SELFPAY ==
--- NOTE | ~2024-01-12 | MM_ITS ---
EXAMINATION: MM DIAGNOSTIC DIGITAL BREAST TOMOSYNTHESIS, BILATERAL CLINICAL INFORMATION: Six-month follow-up left breast calcifications central inferior left breast to establish one-year stability. Patient has history of ADH left breast in 2016 status post excision. Patient also due for bilateral screening. COMPARISON: Mammography: 07/13/2023, 01/11/2023, 12/25/2022 (BI-RADS 0), 12/07/2021, 11/22/2020, and dating back to 2017. TECHNIQUE: Digital breast tomosynthesis is performed in both the craniocaudal and mediolateral oblique views along with computer-aided detection (CAD). Synthesized 2D images are generated from the tomosynthesis. In addition, 2-D spot magnification left CC and ML views were obtained. FINDINGS: The breasts are heterogeneously dense, which may obscure small masses (ACR BI-RADS breast composition Category c). Calcifications in the lower mid left breast, far posterior one third, are identified in 2 distinct closely abutting groups, and again have a punctate predominantly benign morphology without any aggressive changes. No new calcifications. No branching, linear, or ductal forms. These calcifications remain probably benign, and 1 year follow-up left diagnostic mammography is recommended to establish two-year stability and benignity. There has been no significant interval change in the appearance of the central left breast lumpectomy scarring. Scattered benign type calcifications in both breasts. The heterogeneously dense and somewhat nodular parenchymal pattern is stable from numerous prior exams. There are bilateral small circumscribed masses in both breasts, consistent with waxing and waning benign cysts. These are largely unchanged. No new suspicious masses or areas of architectural distortion. No new or increasing suspicious grouped calcifications. No suspicious skin or axillary abnormalities. MM/MM tomosynthesis diagnostic BI IMPRESSION: -There are no findings suspicious for malignancy in either breast. There has been no significant interval change from prior exams. -Calcifications in the mid and inferior left breast, posterior one third, are stable and unchanged over one year, and remain probably benign. One-year follow-up diagnostic mammography recommended to establish benignity, to include standard magnification views. -Heterogeneously dense breast parenchyma with associated waxing and waning cysts bilaterally, benign. -Stable scarring mid left breast from prior excisional biopsy for ADH. -Given the heterogeneously dense fibrocystic breast pattern, history of ADH left breast, and overall complexity of the dense breast tissue, with overall increased risk for breast CA, MRI should be considered as a screening adjunct. ASSESSMENT: BI-RADS BI-RADS 3 - Probably benign finding(s) - 12 month follow-up suggested RECOMMENDATION: 12 month diagnostic follow up Results were provided to the patient at time of visit by the technologist. This patient's information was entered into a reminder system with a target due date for their next mammogram.
== END 2024-01-12 14:28 | disposition home or self-care (01) ==
LOC: HO.MAMMO 14:27
PROVIDERS: PCP Internal Medicine; Visit Provider Internal Medicine
DX: R92.1 Mammographic calcification found on diagnostic imaging of breast (principal)
CPT/HCPCS: 77062; 77066

== ENCOUNTER → 2024-01-12 15:00 | Outpatient (BNV) | payer OTHER, SELFPAY | PROVIDERS: PCP Internal Medicine; Visit Provider Radiology Diagnostic Radiology | DX: R92.1 Mammographic calcification found on diagnostic imaging of breast (principal) | CPT/HCPCS: 77062; 77066 ==

== ENCOUNTER 2024-05-03 08:58 | Outpatient (REF) | payer OTHER, SELFPAY ==
[2024-05-03 16:32] LABS: Estimated Average Glucose 148 mg/dL; Hemoglobin A1c % 6.8 % (<6.0)
[2024-05-03 16:42] LABS: Microalbum/Creatinine Ratio Ur 12.5 ug/mg cr (<30)
[2024-05-03 16:47] LABS: Alanine Aminotransferase 36 U/L (0-31); Anion Gap 17 (12-20); Aspartate Amino Transferase 28 U/L (5-31); Blood Urea Nitrogen 9 mg/dL (9-16); Calcium 9.9 mg/dL (8.4-10.2); Carbon Dioxide 25 mmol/L (22-29); Chloride 105 mmol/L (96-108); Cholesterol 174 mg/dL (<200); Estimated Glomerular Filt Rate > 60; Glucose Fasting 137 mg/dL (60-99); HDL Cholesterol 48 mg/dL (>40); LDL Cholesterol Calculated 80 mg/dL (<100); Potassium 4.7 mmol/L (3.3-5.1); Sodium 142 mmol/L (135-145); Triglycerides 231 mg/dL (<150)
[2024-05-03 16:52] LABS: Vitamin D 25-OH Total 58.1 ng/mL (>30)
== END 2024-05-03 08:59 | disposition home or self-care (01) ==
LOC: HO.HKASLDS 08:58
PROVIDERS: Visit Provider Internal Medicine
DX: R74.01 Elevation of levels of liver transaminase levels (principal); E11.29 Type 2 diabetes mellitus with other diabetic kidney complication; R80.9 Proteinuria, unspecified; I10 Essential (primary) hypertension; E78.2 Mixed hyperlipidemia
CPT/HCPCS: 36415; 80048; 80061; 82043; 82306; 82570; 83036; 84450; 84460

== ENCOUNTER 2024-05-10 15:15 | Outpatient (AMB) | payer OTHER, SELFPAY ==
--- NOTE | 2024-05-10 16:11 | MHC.PC.OV ---
Vital Signs 05/10/24 16:37 Height 5 ft 8 in Weight 174 lb BMI 26.5 BP 124/80 Blood Pressure Location Lt brachial Position Sitting Pulse 62 Pulse Source Pulse Oximeter Pulse Oximetry (%) 98 Oxygen Delivery Method Room Air Intake Visit Reasons: Annual PE Intake Note: Pt is here today for her PE: Last mammogram 01/12/24, colonoscopy 11/14/21 Allergies No Known Allergies [No Known Allergies*] Allergy (Verified 05/10/24 17:29) seasonal Allergy (Unknown, Uncoded 05/10/24 17:29) sneezing Medication List - Last Reconciled 05/10/24 by Sveta Swenson MD ascorbic acid (vitamin C) 250 mg PO DAILY atorvastatin 10 mg PO DAILY blood sugar diagnostic (FreeStyle Lite Strips) Check fasting blood sugar twice a day before meals blood sugar diagnostic (FreeStyle Lite Strips) check blood glucose twice a day before meals blood-glucose meter (FreeStyle Lite Meter kit) Check Fasting blood sugar twice a day before meals, a.m. and p.m. cetirizine (Zyrtec) 10 mg PO DAILY PRN lancets (FreeStyle Lancets) Check fasting blood sugar before meals, a.m. and p.m. lisinopril 5 mg PO DAILY metformin 1,000 mg PO BID 90 days omega-3 acid ethyl esters 2 caps PO BID Tobacco use date assessed: 05/10/24 Dental Screening Dental Screen Date: 05/10/24 Did you have a dental visit in the last 12 months?: Yes Did you have a dental problem in the last 6 months where you did not have access to dental care?: No Was dental information given to patient?: Patient has dentist HPI Annual PE HPI Details 54-year-old lady with history of diabetes mellitus, hypertension, hyperlipidemia, seasonal allergies and history of atypical ductal hyperplasia of left breast, here today for a physical exam. She has been feeling well, exercises but not on a regular basis, and tries to follow recommended diet but states that she loves eating bread and pasta. She is up-to-date with her screening mammogram but is due again for a breast MRI due to history of atypical ductal hyperplasia of left breast still waiting for an appointment. She is up-to-date with her screening colonoscopy and is up-to-date with her vaccinations scheduled get her COVID and flu vaccination this weekend. [facility] Medical History (Updated 05/10/24 @ 17:29 by Sveta Swenson MD) Atypical ductal hyperplasia of left breast Dense breast tissue on mammogram Elevated liver transaminase level Postmenopausal atrophic vaginitis Dyspareunia in female Loss of libido Duodenal bulb ulcer History of uterine prolapse Seasonal allergies Type 2 diabetes mellitus with microalbuminuria, without long-term current use of insulin Essential hypertension Mixed dyslipidemia Surgical History History of tubal ligation History of tonsillectomy History of lumpectomy of left breast History of left breast biopsy History of rhinoplasty History of total vaginal hysterectomy Family History Father History of drug overdose Substance use disorder Mother Cervical cancer Substance use disorder Mental health disorder Brother Diabetes mellitus Maternal Grandmother Breast cancer Maternal Aunt Uterine cancer Social History Housing: House Alcohol intake: current Alcohol intake frequency: holidays/special occasions only Patient Tobacco Use Status: Former Tobacco user Years Smoked: 20 yrs e-Cigarette/Vaping Use: Currently Using service: No Current occupational status: previously employed Cognitive needs: No Hearing needs: No Vision needs: Yes Questionnaire PHQ-9 Over the last 2 weeks, how often have you been bothered by any of the following problems? 1. Little interest or pleasure in doing things: not at all 2. Feeling down, depressed, or hopeless: not at all 3. Trouble falling or staying asleep, or sleeping too much: not at all 4. Feeling tired or having little energy: not at all 5. Poor appetite or overeating: not at all 6. Feeling bad about yourself - or that you are a failure or have let yourself or your family down: not at all 7. Trouble concentrating on things, such as reading the newspaper or watching television: not at all 8. Moving or speaking so slowly that other people could have noticed. Or the opposite - being so fidgety or restless that you have been moving around a lot more than usual: not at all 9. Thoughts that you would be better off or of hurting yourself in some way: not at all Total score: 0 Depression Screening Interpretation: Negative Depression Screening Done: Yes 16371 - PHQ-9 Billing: Yes Source: Developed by Chela Neumann Kurt Kroenke and colleagues, with an educational sid from [email or web address]. Thrive Questionnaire Date Thrive assessed: 05/08/24 I am a: Patient What is your living situation today?: I have a steady place to live Within the past 12 months, did the food you bought not last and you didn't have the money to get more?: Never true Within the past 12 months, did you worry whether your food would run out before you got money to buy more?: Never true Do you have trouble paying for medicines?: No Do you have trouble getting transportation to medical appointments?: No Do you have trouble paying your heating and electricity bill?: No Do you have trouble taking care of your child, family member or friend?: No Do you have trouble with day-to-day activities such as bathing, preparing meals, shopping, managing finances, etc.?: No Are you interested in more education?: No Please select the resources that you would like help with: None Currently or been in a relationship where the following occur: No concerns reported THRIVE Score: 0 AUDIT C Alcohol Use Questionnaire (AUDIT-C) 1. How often do you have a drink containing alcohol?: Never Total Score: 0 ZIGGY-7 AMB Questionnaire ZIGGY-7 Date ZIGGY - 7 assessed: 05/10/24 Feeling nervous, anxious, or on edge: 0 = Not at all Not being able to stop or control worryin = Not at all Worrying too much about different things: 0 = Not at all Trouble relaxin = Not at all Being so restless that it is hard to sit still: 0 = Not at all Becoming easily annoyed or irritable: 0 = Not at all Feeling afraid as if something awful might happen: 0 = Not at all Total ZIGGY-7 score (0-4 normal; 5-9 mild; 10-14 moderate; 15-21 severe): 0 Source: Developed by Chela Neumann Kurt Kroenke and colleagues, with an educational sid from [email or web address]. ZIGGY-7 Assessment Billing ZIGGY-7 Assessment Tool: ZIGGY-7 Assessment 33563 Review of Systems Const Denies body aches, Denies fatigue, Denies fever(s) and Denies weakness Eyes Reports no additional complaints ENT Reports no additional complaints Card Denies chest pain, Denies lightheadedness, Denies palpitations and Denies dyspnea Resp Denies cough and Denies dyspnea GI Denies abdominal pain, Denies change in bowel habits and Denies heartburn Denies urinary frequency, Denies dysuria and Denies urinary urgency Musc Reports no additional complaints Skin/Breast Denies breast pain, Denies breast mass, Denies lesions and Denies rash Neuro Denies Sensory deficit (Neuro) and Denies weakness Psych Reports no additional complaints Endo Denies fatigue, Denies polydipsia, Denies polyuria and Denies palpitations Efrem/Lymph Reports no additional complaints Aller/Immun Reports no additional complaints Physical exam (Primary Care) Vital Signs: Last Vital Signs Pulse 62 05/10/24 16:37 BP 124/80 05/10/24 16:37 Pulse Ox 98 05/10/24 16:37 Oxygen Delivery Method Room Air 05/10/24 16:37 BMI result Body Mass Index 26.5 Tobacco/Smoking Status: Tobacco use Status Tobacco use date assessed 05/10/24 05/10/24 16:13 Patient Tobacco Use Status Former Tobacco user 05/10/24 16:13 e-Cigarette/Vaping Use Currently Using 05/10/24 16:13 PHQ-9: PHQ-9 Score PHQ-9: Total score 0 05/10/24 16:42 Depression Screening Interpretation: Negative Thrive Assessment: Date of Thrive Assessment Date Thrive assessed 05/08/24 05/10/24 16:13 Currently or been in a relationship where the following occur: No concerns reported Advance Care Planning discussion: Completed/Scanned Date of discussion: 05/10/24 Who was present: Patient Forms completed: Health Care Proxy Time spent: 16-45 minutes Actual minutes spent: 16 Const Other: Alert oriented x3, no acute distress noted ambulatory with normal gait Orientation/consciousness: patient oriented x3 HENMT Head: Yes normocephalic Ears: hearing grossly normal bilaterally, external ears normal, TM's normal bilaterally and EAC's normal General nose exam: Normal external nose present Face and sinus: Yes face symmetric Mouth: Normal oral and palatal mucosa present, oropharynx normal and moist mucous membranes Eyes General: appearance normal, both eyes and all related structures Pupils: Equal, round and reactive pupils present EOM: EOMs intact bilaterally Neck Other: Supple, no lymphadenopathy, thyroid gland nonpalpable Chest Breast/axilla palpation: normal palpation of the breasts Resp Auscultation: clear to auscultation bilaterally Cardio Other: S1-S2 present regular rate with GI Inspection: Yes normal to inspection Palpation (GI): Soft to palpation, nontender, no guarding and no masses General: Yes no CVA tenderness Back/Spine/Pelvis Back: no CVA tenderness and No back tenderness Skin General skin exam: no rashes or lesions noted and scars (Upper inner quadrant of left breast) Neuro General: patient oriented x3, gait normal, moves all extremities, Normal light touch and pain sensation, no focal motor deficits and CN's II-XI intact bilaterally Cranial nerves: Yes Equal, round and reactive pupils present Sensory Exam: No Sensory deficit (Neuro) Extrem General: Yes full ROM, Yes no clubbing, cyanosis or edema and Yes normal gait Psych Appearance: grossly normal Mental Status: mental status grossly normal Speech and movement: Normal speech and movement present Affect: normal affect Attitude: cooperative Thought process: Normal thought process present Results Reviewed Results Reviewed: Name: Oksana Avilez Age/Sex: 54/F : 1970 Unit#: [id number] Attend Dr: Sveta Swenson MD Re05/03/24 Status: DEP REF Location: [facility] Disch: SPEC : [id number] MENA: 05/03/24 STATUS: COMP REQ : [id number] RECD: 05/03/[address]: Sveta Swenson MD COMP: 05/03/24 ENTERED: 05/03/[address]: ORDERED: Met Prof Fast, AST, ALT, Lipid Panel, Vitamin D 25-OH Test Result Flag Reference Sodium 142 135-145 mmol/L Potassium 4.7 3.3-5.1 mmol/L CL 105 96-108 mmol/L CO2 25 22-29 mmol/L Gap 17 12-20 BUN 9 9-16 mg/dL Creat 0.72 0.5-1.4 mg/dL EGFR > 60 NOTE: For -[place] individuals, multiply the result by 1.210. Chronic Kidney Disease: Estimated GFR < 60 mL/min/1.73m2 Severe Kidney Disease: Estimated GFR < 15 mL/min/1.73m2 FBS 137 H 60-99 mg/dL A fasting glucose of 126 mg/dl or greater on more than one occasion is considered diagnostic of diabetes. CA 9.9 8.4-10.2 mg/dL AST (GOT) 28 5-31 U/L ALT (GPT) 36 H 0-31 U/L Triglyceride 231 H <150 mg/dL Desirable Triglyceride: less than 150 mg/dL Borderline High Triglyceride 150-199 mg/dL High Triglyceride: 200-499 mg/dL Very High Triglyceride: greater than or equal to 5OO mg/dL Cholesterol 174 <200 mg/dL Desirable Cholesterol: less than 200 mg/dL Borderline High Cholesterol: 200-239 mg/dL High Cholesterol: greater than 239 mg/dL LDL Calculated 80 <100 mg/dL Desirable LDL: less than 100 mg/dL Near Optimal/Above Optimal LDL: 110-129 mg/dL Borderline High LDL: 130-159 mg/dL High LDL: 160-189 mg/dL Very High LDL: greater than or equal to 190 mg/dL HDL 48 >40 mg/dL Desirable HDL: greater than 40 mg/dL Note: This HDL assay may give artificially low results in patients with liver disease. Vit D 25-OH Tot 58.1 >30 ng/mL Health Based Reference Values* < 20 ng/mL Deficient 20-30 ng/mL Insufficient > 30 ng/mL Sufficient Laboratory Tests 05/03/24 05/03/24 09:04 09:06 Estimat Average Glucose 148 Hemoglobin A1c % 6.8 H Urine Creatinine 87.70 Urine Microalbumin 11.0 Microalb/Creat Ratio 12.5 Assessment and Plan Assessment & Plan (1) Annual visit for general adult medical examination with abnormal findings: Code(s): Z00.01 - Encounter for general adult medical examination with abnormal findings Plan: Reviewed recent fasting lab results with patient. Continue with regular dental visit every 6 months and yearly eye exam to check for diabetes retinopathy.. Take adequate calcium in diet and vitamin-D 3 at 2000 IU per cap once a day, in addition to weight-bearing exercises to help maintain good muscle tone and weight control. Instructed to do self-breast exam, and continue with yearly mammogram. Referred already for breast MRI due to history of atypical ductal hyperplasia of left breast. She is up-to-date with all her vaccinations, has an appointment to do her COVID and flu vaccine this coming Tuesday. Up-to-date with her screening colonoscopy, done by Dr. Magallanes (2) Mixed dyslipidemia: Code(s): E78.2 - Mixed hyperlipidemia Plan: Reviewed recent fasting lipid profile with patient with levels within normal limits except for elevated triglycerides . Continue atorvastatin 10 mg daily , in addition to adherence to low-cholesterol diet and regular exercise, at least 30 minutes 3 to 4 times a week. Advised patient to make healthy food choices, eat more fruits, vegetables, whole grains, wild caught fish and low-fat dairy. Limit amount of meat and fried or fatty food products, as well as processed foods and fast foods. Follow-up scheduled with repeat fasting lipid panel in 4 months. (3) Essential hypertension: Code(s): I10 - Essential (primary) hypertension Plan: Blood pressure at goal of less than 130/80. Continue with lisinopril 5 mg. Reinforced importance of following a low sodium diet, getting regular exercise, and lowering stress levels. (4) Type 2 diabetes mellitus with microalbuminuria, without long-term current use of insulin: Code(s): E11.29 - Type 2 diabetes mellitus with other diabetic kidney complication; R80.9 - Proteinuria, unspecified Plan: Latest hemoglobin A1c is at 6.8%. Continue with metformin a 1000 mg 1 tablet twice a day, and stressed importance of following recommended diet, avoid eating a lot of bread, pasta, continue with doing regular cardio exercise at least 30 minutes daily. Will repeat another fasting lab in 4 months. (5) Atypical ductal hyperplasia of left breast: Code(s): N60.92 - Unspecified benign mammary dysplasia of left breast Plan: Will follow-up on the order for the MRI of the breast ordered last 12/2023, if unable to be done at [place], will refer to [facility] MRI and imaging (6) Seasonal allergies: Code(s): J30.2 - Other seasonal allergic rhinitis Plan: Takes cetirizine as needed (7) Advanced directives, counseling/discussion: Code(s): Z71.89 - Other specified counseling Plan: Initiated the conversation about Advanced Directives. Advanced Directives help patients prepare for current and future decisions about their medical treatment and place of care. Discussed with patient that it is a process where a patients current condition and prognosis are reviewed, their wishes for information regarding their illness are elicited, and likely medical dilemmas are presented and options discussed. Healthcare proxy form completed today. The form can be amended as needed, reviewed yearly and make changes as needed Orders: Orders Alanine Aminotransferase 09/01/24 - Type 2 diabetes mellitus with other diabetic kidney complication, E78.2 - Mixed hyperlipidemia, I10 - Essential (primary) hypertension, R80.9 - Proteinuria, unspecified Aspartate Amino Transferase 09/01/24 - Type 2 diabetes mellitus with other diabetic kidney complication, E78.2 - Mixed hyperlipidemia, I10 - Essential (primary) hypertension, R80.9 - Proteinuria, unspecified Basic Metabolic Panel Fasting 09/01/24 - Type 2 diabetes mellitus with other diabetic kidney complication, E78.2 - Mixed hyperlipidemia, I10 - Essential (primary) hypertension, R80.9 - Proteinuria, unspecified Lipid Panel 09/01/24 - Type 2 diabetes mellitus with other diabetic kidney complication, E78.2 - Mixed hyperlipidemia, I10 - Essential (primary) hypertension, R80.9 - Proteinuria, unspecified Hemoglobin A1c 09/01/24 - Type 2 diabetes mellitus with other diabetic kidney complication, E78.2 - Mixed hyperlipidemia, I10 - Essential (primary) hypertension, R80.9 - Proteinuria, unspecified Vitamin D 25-OH Total 09/01/24 - Type 2 diabetes mellitus with other diabetic kidney complication, E78.2 - Mixed hyperlipidemia, I10 - Essential (primary) hypertension, R80.9 - Proteinuria, unspecified Microalbumin, Random (w Creat) 09/01/24 - Type 2 diabetes mellitus with other diabetic kidney complication, E78.2 - Mixed hyperlipidemia, I10 - Essential (primary) hypertension, R80.9 - Proteinuria, unspecified Coding Level of Care Code Est Pt Prev Care 40-64y(04714) Diagnoses Annual visit for general adult medical examination with abnormal findings Z00.01 Mixed dyslipidemia E78.2 Essential hypertension I10 Type 2 diabetes mellitus with microalbuminuria, without long-term current use of insulin E11.; R80.9 Atypical ductal hyperplasia of left breast N60.92 Seasonal allergies J30.2 Advanced directives, counseling/discussion Z71.89 Additional Codes Vital Signs *Quality* - Advance Care Planning discussion: Completed/Scanned ([id number]) Vital Signs *Quality* - Time spent: 16-45 minutes ([id number]) ZIGGY-7 Assessment Billing - ZIGGY-7 Assessment Tool: ZIGGY-7 Assessment [id number] ([id number])
[2024-05-10 16:37] VITALS: BP 124/80; PULSE 62; O2SAT 98; BMI 26.5
== END 2024-05-10 17:09 | disposition home or self-care (01) ==
PROVIDERS: PCP Internal Medicine; Visit Provider Internal Medicine
DX: Z00.01 Encounter for general adult medical examination with abnormal findings (principal); E78.2 Mixed hyperlipidemia; I10 Essential (primary) hypertension; E11.29 Type 2 diabetes mellitus with other diabetic kidney complication; R80.9 Proteinuria, unspecified; N60.92 Unspecified benign mammary dysplasia of left breast; J30.2 Other seasonal allergic rhinitis; Z71.89 Other specified counseling; Z00.00 Encounter for general adult medical examination without abnormal findings

== ENCOUNTER → 2024-05-10 15:15 | Outpatient (BNVA) | payer OTHER, SELFPAY | PROVIDERS: PCP Internal Medicine; Visit Provider Internal Medicine | DX: Z00.01 Encounter for general adult medical examination with abnormal findings (principal); E78.2 Mixed hyperlipidemia; I10 Essential (primary) hypertension; E11.29 Type 2 diabetes mellitus with other diabetic kidney complication; R80.9 Proteinuria, unspecified; N60.92 Unspecified benign mammary dysplasia of left breast; J30.2 Other seasonal allergic rhinitis; Z71.89 Other specified counseling; Z87.891 Personal history of nicotine dependence | CPT/HCPCS: 96127; 99497 ==

== ENCOUNTER 2024-05-21 14:26 | Outpatient (REF) | payer OTHER, SELFPAY ==
--- NOTE | ~2024-05-21 | MR_ITS ---
EXAMINATION: MR BREAST WITHOUT AND WITH CONTRAST, BILATERAL CLINICAL INFORMATION: High-risk screening. History of left breast atypia. Dense breasts. Lifetime risk 33%. COMPARISON: Baseline breast MRI. Comparison with mammography dating from 01/12/2024. TECHNIQUE: Imaging was performed with a dedicated breast coil. Prior to the administration of contrast, bilateral axial T1 and bilateral axial T2 weighted sequences were obtained. After the uneventful administration of 8 mL of Gadavist, dynamic contrast-enhanced VIBRANT series through the breasts in the axial plane were performed. Subtracted images were performed and reviewed. A delayed sagittal sequence through both breasts was acquired. Additionally, CAD post-processing, including maximum intensity projections, 3-D reconstructions and kinetic analysis, were performed an independent workstation and reviewed by the interpreting radiologist is a portion of this exam. FINDINGS: The breasts are comprised of heterogeneous, dense fibroglandular parenchyma. LEFT BREAST: There is an oval 6 mm enhancing mass at 5 o'clock (image 107/144) 4 cm from the nipple. This may correlate with left breast calcifications under follow-up. Recommend attention on upcoming diagnostic mammography with MR-directed diagnostic ultrasound at the same visit. Biopsy is indicated. Several additional 4-5 mm foci are noted in the 12 o'clock retroareolar left breast (image 84, 94/144). ADH in left breast upper inner quadrant at 9 o'clock, 2016 biopsy. Recommend attention on short-term MRI follow up. RIGHT BREAST: A lobular 11 mm nonenhancing right breast mass at 1 o'clock posteriorly (image 69/144). In retrospect, this appears mammographically stable. Multiple scattered similar foci of non-mass enhancement throughout the right breast. Attention on short-term MRI follow-up. There is no suspicious internal mammary chain or axillary adenopathy. Limited views of the chest and abdomen are unremarkable. MR/MR breast BI wo/w con IMPRESSION: 1. A dominant 6 mm left breast mass at 5 o'clock, 4 cm from the nipple, may correlate with indeterminate calcifications. Pending diagnostic mammography. Recommend additional MR-directed diagnostic ultrasound. Biopsy is indicated. 2. Multiple similar foci of non-mass enhancement throughout both breasts. Recommend bilateral breast MRI in 6 months. ASSESSMENT: LEFT BREAST: BI-RADS 4 suspicious finding. RIGHT BREAST: BI-RADS 1-Negative. RECOMMENDATIONS: 1. Recommend additional MR-directed diagnostic mammography and ultrasound. Biopsy of dominant left breast lesion 5:00, 4 cm from the nipple is indicated. 2. Recommend bilateral breast MRI in 6 months. Electronically signed by: Jame Taylor MD 07/21/2024 07:25 AM [facility] [place]
[2024-05-21] MEDS: gadobutroL 10 ML VIAL IVPUSH (15:32)
== END 2024-05-21 14:27 | disposition home or self-care (01) ==
LOC: HO.MRI 14:26
PROVIDERS: PCP Internal Medicine; Visit Provider Internal Medicine
DX: R92.30 Dense breasts, unspecified (principal); N60.92 Unspecified benign mammary dysplasia of left breast
CPT/HCPCS: 77049; A9585

== ENCOUNTER 2024-09-04 07:20 | Outpatient (REF) | payer OTHER, SELFPAY ==
[2024-09-04 10:12] LABS: Estimated Average Glucose 151 mg/dL; Hemoglobin A1C 183.5156 umol/L; Hemoglobin A1c % 6.9 % (<6.0); Total Hemoglobin (HGBA1C) 3511.8639 umol/L
[2024-09-04 10:35] LABS: Creatinine Urine 107.62 mg/dL; Microalbum/Creatinine Ratio Ur 11.1 ug/mg cr (<30)
[2024-09-04 10:48] LABS: Alanine Aminotransferase 36 U/L (0-31); Anion Gap 10 (12-20); Aspartate Amino Transferase 27 U/L (5-31); Blood Urea Nitrogen 11 mg/dL (9-16); Calcium 9.2 mg/dL (8.4-10.2); Carbon Dioxide 27 mmol/L (22-29); Chloride 110 mmol/L (96-108); Cholesterol 156 mg/dL (<200); Estimated Glomerular Filt Rate > 60; Glucose Fasting 134 mg/dL (60-99); HDL Cholesterol 43 mg/dL (>40); LDL Cholesterol Calculated 79 mg/dL (<100); Potassium 4.8 mmol/L (3.3-5.1); Sodium 142 mmol/L (135-145); Triglycerides 171 mg/dL (<150)
[2024-09-04 10:49] LABS: Vitamin D 25-OH Total 41.9 ng/mL (>30)
== END 2024-09-04 07:21 | disposition home or self-care (01) ==
LOC: HO.HMGCLDS 07:20
PROVIDERS: PCP Internal Medicine; Visit Provider Internal Medicine
DX: E11.29 Type 2 diabetes mellitus with other diabetic kidney complication (principal); R80.9 Proteinuria, unspecified; I10 Essential (primary) hypertension; E78.2 Mixed hyperlipidemia
CPT/HCPCS: 36415; 80048; 80061; 82043; 82306; 82570; 83036; 84450; 84460

== ENCOUNTER 2024-09-11 07:49 | Outpatient (AMB) | payer OTHER, SELFPAY ==
[2024-09-11 07:57] VITALS: BP 138/80; PULSE 70; O2SAT 99; BMI 26.3
--- NOTE | 2024-09-11 07:57 | A.OFFPC_ITS ---
Vital Signs 09/11/24 07:57 Height 5 ft 8 in Weight 173 lb BMI 26.3 BP 138/80 Blood Pressure Location Rt brachial Position Sitting Pulse 70 Pulse Source Pulse Oximeter Pulse Oximetry (%) 99 Oxygen Delivery Method Room Air Intake Visit Reasons: follow dm, lipids and labs Intake Note: - The patient is a 54-year-old female presenting for follow-up care regarding her Type 2 Diabetes Mellitus - Her Type 2 Diabetes Mellitus control is inadequate with a current HbA1c of 6.9%, currently taking metformin at 1000 mg 1 tablet twice a day. - Ongoing management of hyperlipidemia has shown improvement with atorvastatin, with latest labs showing lower triglyceride and cholesterol levels. -up-to-date with her retinopathy screening, which shows no diabetes-related damages, though floaters are present. - Current vaccines are up-to-date, documented without complications. Allergies No Known Allergies [No Known Allergies*] Allergy (Verified 09/11/24 08:31) seasonal Allergy (Unknown, Uncoded 09/11/24 08:31) sneezing Medication List - Last Reconciled 09/11/24 by Sveta Swenson MD ascorbic acid (vitamin C) 250 mg PO DAILY atorvastatin 10 mg PO DAILY blood sugar diagnostic (FreeStyle Lite Strips) Check fasting blood sugar twice a day before meals blood sugar diagnostic (FreeStyle Lite Strips) check blood glucose twice a day before meals blood-glucose meter (FreeStyle Lite Meter kit) Check Fasting blood sugar twice a day before meals, a.m. and p.m. cetirizine (Zyrtec) 10 mg PO DAILY PRN lancets (FreeStyle Lancets) Check fasting blood sugar before meals, a.m. and p.m. lisinopril 5 mg PO DAILY metformin 1,000 mg PO BID 90 days nicotine (polacrilex) (Nicorette) 4 mg buccal Q2H omega-3 acid ethyl esters 2 caps PO BID Tobacco use date assessed: 09/11/24 Dental Screening Dental Screen Date: 09/11/24 Did you have a dental visit in the last 12 months?: Yes Did you have a dental problem in the last 6 months where you did not have access to dental care?: No Was dental information given to patient?: Patient has dentist HPI follow dm, lipids and labs HPI Details - The patient is a 54-year-old female pr esenting for follow-up care regarding her Type 2 Diabetes Mellitus - Her Type 2 Diabetes Mellitus control i s inadequate with a current HbA1c of 6.9%, currently taking metformin at 1000 mg 1 tablet twice a day. - Ongoing management of hyperlipidemia h as shown improvement with atorvastatin, with latest labs showing lower triglyceride and cholesterol levels. -up-to-date with her retinopathy screeni ng, which shows no diabetes-related damages, though floaters are present. - Current vaccines are up-to-date, docum ented without complications. [facility] Medical History Atypical ductal hyperplasia of left breast Dense breast tissue on mammogram Elevated liver transaminase level Postmenopausal atrophic vaginitis Dyspareunia in female Loss of libido Duodenal bulb ulcer History of uterine prolapse Seasonal allergies Type 2 diabetes mellitus with microalbuminuria, without long-term current use of insulin Essential hypertension Mixed dyslipidemia Surgical History History of tubal ligation History of tonsillectomy History of lumpectomy of left breast History of left breast biopsy History of rhinoplasty History of total vaginal hysterectomy Family History Father History of drug overdose Substance use disorder Mother Cervical cancer Substance use disorder Mental health disorder Brother Diabetes mellitus Maternal Grandmother Breast cancer Maternal Aunt Uterine cancer Social History Housing: House Alcohol intake: current Alcohol intake frequency: holidays/special occasions only Patient Tobacco Use Status: Former Tobacco user Years Smoked: 20 yrs e-Cigarette/Vaping Use: Former Use service: No Current occupational status: previously employed Cognitive needs: No Hearing needs: No Vision needs: Yes Questionnaire Thrive Questionnaire Date Thrive assessed: 09/04/24 I am a: Patient What is your living situation today?: I have a steady place to live Within the past 12 months, did the food you bought not last and you didn't have the money to get more?: Never true Within the past 12 months, did you worry whether your food would run out before you got money to buy more?: Never true Do you have trouble paying for medicines?: No Do you have trouble getting transportation to medical appointments?: No Do you have trouble paying your heating and electricity bill?: No Do you have trouble taking care of your child, family member or friend?: No Do you have trouble with day-to-day activities such as bathing, preparing meals, shopping, managing finances, etc.?: No Are you currently unemployed and looking for a job?: No Are you interested in more education?: No Please select the resources that you would like help with: None Currently or been in a relationship where the following occur: No concerns reported THRIVE Score: 0 AUDIT C Alcohol Use Questionnaire (AUDIT-C) 1. How often do you have a drink containing alcohol?: Never Total Score: 0 ZIGGY-7 AMB Questionnaire ZIGGY-7 Date ZIGGY - 7 assessed: 05/10/24 Feeling nervous, anxious, or on edge: 0 = Not at all Not being able to stop or control worryin = Not at all Worrying too much about different things: 0 = Not at all Trouble relaxin = Not at all Being so restless that it is hard to sit still: 0 = Not at all Becoming easily annoyed or irritable: 0 = Not at all Feeling afraid as if something awful might happen: 0 = Not at all Total ZIGGY-7 score (0-4 normal; 5-9 mild; 10-14 moderate; 15-21 severe): 0 Source: Developed by Drs. Malik Hall, Chela Worley, Arsalan Morris and colleagues, with an educational sid from [employer]. Review of Systems Const Denies body aches, Denies fatigue, Denies fever(s) and Denies weakness Eyes Reports no additional complaints ENT Reports no additional complaints Card Denies chest pain, Denies lightheadedness, Denies palpitations and Denies dyspnea Resp Denies cough and Denies dyspnea GI Denies abdominal pain, Denies change in bowel habits and Denies heartburn Denies urinary frequency, Denies dysuria and Denies urinary urgency Musc Reports no additional complaints Skin/Breast Denies breast pain, Denies breast mass, Denies lesions and Denies rash Neuro Denies Sensory deficit (Neuro) and Denies weakness Psych Reports no additional complaints Endo Denies fatigue, Denies polydipsia, Denies polyuria and Denies palpitations Efrem/Lymph Reports no additional complaints Aller/Immun Reports no additional complaints Physical exam (Primary Care) Vital Signs: Last Vital Signs Pulse 70 09/11/24 07:57 BP 138/80 09/11/24 07:57 Pulse Ox 99 09/11/24 07:57 Oxygen Delivery Method Room Air 09/11/24 07:57 BMI result Body Mass Index 26.3 Tobacco/Smoking Status: Tobacco use Status Tobacco use date assessed 09/11/24 09/11/24 08:01 Patient Tobacco Use Status Former Tobacco user 09/11/24 07:57 e-Cigarette/Vaping Use Former Use 09/11/24 08:01 Thrive Assessment: Date of Thrive Assessment Date Thrive assessed 09/04/24 09/11/24 07:57 Currently or been in a relationship where the following occur: No concerns reported Const Other: Alert oriented x3, no acute distress noted ambulatory with normal gait HENMT Head: Yes normocephalic Ears: external ears normal Face and sinus: Yes face symmetric Mouth: Normal oral and palatal mucosa present, oropharynx normal and moist mucous membranes Eyes General: appearance normal, both eyes and all related structures Pupils: Equal, round and reactive pupils present EOM: EOMs intact bilaterally Neck Other: Supple, no lymphadenopathy, thyroid gland nonpalpable Resp Auscultation: clear to auscultation bilaterally Cardio Other: S1-S2 present regular rate with GI Inspection: Yes normal to inspection Palpation (GI): Soft to palpation, nontender, no guarding and no masses General: Yes no CVA tenderness Back/Spine/Pelvis Back: no CVA tenderness and No back tenderness Skin General skin exam: no rashes or lesions noted and scars (Upper inner quadrant of left breast) Neuro General: gait normal, moves all extremities, Normal light touch and pain sensation, no focal motor deficits and CN's II-XI intact bilaterally Cranial nerves: Yes Equal, round and reactive pupils present Sensory Exam: No Sensory deficit (Neuro) Extrem General: Yes full ROM, Yes no clubbing, cyanosis or edema and Yes normal gait Results Reviewed Results Reviewed: Laboratory Tests 09/04/24 09/04/24 06:44 07:44 Estimat Average Glucose 151 Hemoglobin A1c % 6.9 H Urine Creatinine 107.62 Urine Microalbumin 12.0 Microalb/Creat Ratio 11.1 Name: Oksana Avilez Age/Sex: 54/F : 1970 Unit#: [id number] Attend Dr: Sveta Swenson MD Re09/04/24 Status: DEP REF Location: [facility] Disch: SPEC : [id number] MENA: 09/04/24 STATUS: COMP REQ : [id number] RECD: 09/04/[address]: Sveta Swenson MD COMP: 09/04/24 ENTERED: 09/04/24 [facility]: ORDERED: Met Prof Fast, AST, ALT, Lipid Panel, Vitamin D 25-OH Test Result Flag Reference Sodium 142 135-145 mmol/L Potassium 4.8 3.3-5.1 mmol/L CL 110 H 96-108 mmol/L CO2 27 22-29 mmol/L Gap 10 L 12-20 BUN 11 9-16 mg/dL Creat 0.66 0.5-1.4 mg/dL eGFR > 60 Chronic Kidney Disease: Estimated GFR < 60 mL/min/1.73m2 Severe Kidney Disease: Estimated GFR < 15 mL/min/1.73m2 FBS 134 H 60-99 mg/dL A fasting glucose of 126 mg/dl or greater on more than one occasion is considered diagnostic of diabetes. CA 9.2 # 8.4-10.2 mg/dL AST (GOT) 27 5-31 U/L ALT (GPT) 36 H 0-31 U/L Triglyceride 171 H <150 mg/dL Desirable Triglyceride: less than 150 mg/dL Borderline High Triglyceride 150-199 mg/dL High Triglyceride: 200-499 mg/dL Very High Triglyceride: greater than or equal to 5OO mg/dL Cholesterol 156 <200 mg/dL Desirable Cholesterol: less than 200 mg/dL Borderline High Cholesterol: 200-239 mg/dL High Cholesterol: greater than 239 mg/dL LDL Calculated 79 <100 mg/dL Desirable LDL: less than 100 mg/dL Near Optimal/Above Optimal LDL: 110-129 mg/dL Borderline High LDL: 130-159 mg/dL High LDL: 160-189 mg/dL Very High LDL: greater than or equal to 190 mg/dL HDL 43 >40 mg/dL Desirable HDL: greater than 40 mg/dL Note: This HDL assay may give artificially low results in patients with liver disease. Vit D 25-OH Tot 41.9 >30 ng/mL Health Based Reference Values* < 20 ng/mL Deficient 20-30 ng/mL Insufficient > 30 ng/mL Sufficient Coding Level of Care Code Est Pt Level 4 (86277) Complex EM visit Add On G2211 Diagnoses Type 2 diabetes mellitus with microalbuminuria, without long-term current use of insulin E11.29; R80.9 Mixed dyslipidemia E78.2 Essential hypertension I10 Assessment & Plan Assessment & Plan (1) Type 2 diabetes mellitus with microalbuminuria, without long-term current use of insulin: Code(s): E11.29 - Type 2 diabetes mellitus with other diabetic kidney complication; R80.9 - Proteinuria, unspecified Category: Medical (2) Mixed dyslipidemia: Code(s): E78.2 - Mixed hyperlipidemia Category: Medical (3) Essential hypertension: Code(s): I10 - Essential (primary) hypertension Category: Medical Plan Mounjaro will be initiated for managing Type 2 Diabetes Mellitus alongside Metformin, with plans for evaluation of efficacy and tolerability in three months. Atorvastatin therapy for hyperlipidemia remains unchanged due to positive developments in lipid profiles. The patient has been advised on Mounjaro's side effects, instructed to monitor and report any adverse symptoms. She should provide updates on her condition by the third week after initiating Mounjaro. Further monitoring includes routine health maintenance checks, including eye exams and blood pressure, to ensure comprehensive chronic disease management. Will schedule another follow-up visit in 3 months, advised to do fasting labs prior to scheduled appointment in November Patient was informed and verbally consented to the use of an ambient scribe for clinic note documentation during this visit. Orders: Orders Hemoglobin A1c 11/20/24 E11.29 - Type 2 diabetes mellitus with other diabetic kidney complication, E78.2 - Mixed hyperlipidemia, I10 - Essential (primary) hypertension, R80.9 - Proteinuria, unspecified Basic Metabolic Panel Fasting 11/20/24 E11.29 - Type 2 diabetes mellitus with other diabetic kidney complication, E78.2 - Mixed hyperlipidemia, I10 - Essential (primary) hypertension, R80.9 - Proteinuria, unspecified Aspartate Amino Transferase 11/20/24 E11.29 - Type 2 diabetes mellitus with other diabetic kidney complication, E78.2 - Mixed hyperlipidemia, I10 - Essentia l (primary) hypertension, R80.9 - Proteinuria, unspecified Alanine Aminotransferase 11/20/24 E11.29 - Type 2 diabetes mellitus with other diabetic kidney complication, E78.2 - Mixed hyperlipidemia, I10 - Essential (primary) hypertension, R80.9 - Proteinuria, unspecified Lipid Panel 11/20/24 E11.29 - Type 2 diabetes mellitus with other diabetic kidney complication, E78.2 - Mixed hyperlipidemia, I10 - Essential (primary) hypertension, R80.9 - Proteinuria, unspecified Medications: New Mounjaro (tirzepatide) for 4 weeks 2.5 mg (0.5 mL) subcut QWEEK 30 days 2 mL 0RF NS E11.29 - Type 2 diabetes mellitus with other diabetic kidney complication, R80.9 - Proteinuria, unspecified
== END 2024-09-11 08:51 | disposition home or self-care (01) ==
PROVIDERS: PCP Internal Medicine; Visit Provider Internal Medicine
DX: E11.29 Type 2 diabetes mellitus with other diabetic kidney complication (principal); R80.9 Proteinuria, unspecified; E78.2 Mixed hyperlipidemia; I10 Essential (primary) hypertension

== ENCOUNTER → 2024-09-11 07:49 | Outpatient (BNVA) | payer OTHER, SELFPAY | PROVIDERS: PCP Internal Medicine; Visit Provider Internal Medicine | DX: E11.29 Type 2 diabetes mellitus with other diabetic kidney complication (principal); R80.9 Proteinuria, unspecified; E78.2 Mixed hyperlipidemia; I10 Essential (primary) hypertension | CPT/HCPCS: 99212 ==

== ENCOUNTER → 2024-09-20 09:00 | Outpatient (BNV) | payer OTHER, SELFPAY | PROVIDERS: PCP Internal Medicine; Visit Provider Internal Medicine | DX: R92.1 Mammographic calcification found on diagnostic imaging of breast (principal) | CPT/HCPCS: 76642; 77061; 77065 ==

== ENCOUNTER 2024-10-03 09:41 | Outpatient (REF) | payer OTHER, SELFPAY ==
--- NOTE | ~2024-10-03 | MR_ITS ---
EXAMINATION: MR GUIDED VACUUM-ASSISTED CORE BIOPSY BREAST, LEFT Attempted and aborted CLINICAL INFORMATION: Left breast suspicious enhancing mass recommended for MRI guided core needle biopsy.. COMPARISON: Comparison is made with available prior examinations. TECHNIQUE/PROCEDURE: Informed consent was obtained from the patient after discussion of the benefits, risks, and alternatives to biopsy today. Patient agreed and understood.. Gave opportunity for questions. Patient signed consent form. MRI imaging/guidance using breast surface coil. Imaging is performed without and with use of Gadavist gadolinium contrast. Immediately after contrast was given the patient experienced nausea and the feeling that she was going to vomit. Scanning stopped the patient was taken out of the MRI machine until she felt relief from her symptoms. Scanning was then performed after the patient's symptoms resolved however contrast was no longer within the breasts therefore procedure was terminated. MRI breast biopsy was not performed. MR/MR guided breast biopsy LT IMPRESSION: 1. MRI breast biopsy was not performed due to patient's symptoms and timing of contrast. 2. Recommend follow-up MRI for further evaluation as initial MRI was April 2024 recommend MRI in November for further evaluation left breast enhancing masses. At that time comparison can be made and biopsy versus follow-up can then be recommended and assessed. Electronically signed by: Nevaeh Wolf DO 10/03/2024 02:15 PM [facility]
--- OUTSIDE RECORDS SUMMARY | 2024-10-03 11:05 | XMS_ITS | Continuity of Care Document ---
Author Name [facility] Organization [facility] Care Team Providers Care Reading Coach Name Role Phone [facility] Unavailable Unavailable Allergies, Adverse Reactions, Alerts Combined list of allergies from Department of Defense and Veterans Affairs facilities. It does not include entries that were removed or entered in error. Substance Category Reaction Severity Reaction type Status Date Reported Comments Source No Known Allergies Drug allergy (disorder) active 11/18/2007 [facility] Procedures Combined list of: 1) Procedures from Department of Veterans Affairs facilities going back up to thelast 18 months, not all [place] non-surgical procedures are included; 2) All procedures from the Department of Defense facilities. Procedure Procedure Type Code Date Perfomer Comments Ovidio méndez REVISION RHINOPLASTY 09/07/1995 [facility] ASPIRATION OF THYROID FIELD 09/07/1995 [facility] UNLISTED PROCEDURE, CASTING OR STRAPPING 03/28/2002 [facility] NONINVASIVE EAR OR PULSE OXIMETRY FOR OXYGEN SATURATION; SINGLE DETERMINATION 03/27/2002 [facility] TONSILLECTOMY, PRIMARY OR SECONDARY; AGE 12 OR OVER 05/20/1999 [facility] Social History Combined list of available smoking, tobacco, and other social history from Department of Defense and Veterans Affairs facilities. Social History Type Response Date Comment Ovidio méndez This section is an empty social history section. [facility]
[2024-10-03] MEDS: gadobutroL 10 ML VIAL IVPUSH (11:27)
== END 2024-10-03 09:42 | disposition home or self-care (01) ==
LOC: HO.MRI 09:41
PROVIDERS: PCP Internal Medicine; Visit Provider Internal Medicine
DX: N63.23 Unspecified lump in the left breast, lower outer quadrant (principal)
CPT/HCPCS: 19085; A9585

== ENCOUNTER → 2024-10-03 10:09 | Outpatient (BNV) | payer OTHER, SELFPAY | PROVIDERS: PCP Internal Medicine; Visit Provider Internal Medicine | DX: N64.89 Other specified disorders of breast (principal) | CPT/HCPCS: 19085 ==

== ENCOUNTER 2024-12-07 08:54 | Outpatient (REF) | payer OTHER, SELFPAY ==
[2024-12-07 10:16] LABS: Estimated Average Glucose 143 mg/dL; Hemoglobin A1C 170.7899 umol/L; Hemoglobin A1c % 6.6 % (<6.0)
[2024-12-07 10:31] LABS: Alanine Aminotransferase 29 U/L (0-31); Anion Gap 12 (12-20); Aspartate Amino Transferase 30 U/L (5-31); Blood Urea Nitrogen 6 mg/dL (9-16); Calcium 9.5 mg/dL (8.4-10.2); Carbon Dioxide 26 mmol/L (22-29); Chloride 110 mmol/L (96-108); Cholesterol 161 mg/dL (<200); Estimated Glomerular Filt Rate > 60; Glucose Fasting 103 mg/dL (60-99); HDL Cholesterol 41 mg/dL (>40); LDL Cholesterol Calculated 72 mg/dL (<100); Potassium 4.6 mmol/L (3.3-5.1); Sodium 143 mmol/L (135-145); Triglycerides 241 mg/dL (<150)
== END 2024-12-07 08:55 | disposition home or self-care (01) ==
LOC: HO.HMGCLDS 08:54
PROVIDERS: PCP Internal Medicine; Visit Provider Internal Medicine
DX: E11.29 Type 2 diabetes mellitus with other diabetic kidney complication (principal); R80.9 Proteinuria, unspecified; I10 Essential (primary) hypertension; E78.2 Mixed hyperlipidemia
CPT/HCPCS: 36415; 80048; 80061; 83036; 84450; 84460

== ENCOUNTER 2024-12-11 08:01 | Outpatient (AMB) | payer OTHER, SELFPAY ==
--- OUTSIDE RECORDS SUMMARY | 2024-12-11 08:11 | XMS_ITS | Continuity of Care Document ---
Author Name [facility] Organization [facility] Care Team Providers Care Topper Press Operator Automatic Name Role Phone [facility] Unavailable Unavailable Allergies, Adverse Reactions, Alerts Combined list of allergies from Department of Defense and Veterans Affairs facilities. It does not include entries that were removed or entered in error. Substance Category Reaction Severity Reaction type Status Date Reported Comments Source No Known Allergies Drug allergy (disorder) active 11/18/2007 [facility] Procedures Combined list of: 1) Procedures from Department of Veterans Affairs facilities going back up to thelast 18 months, not all [place] non-surgical procedures are included; 2) All procedures from the Department of Defense facilities. Procedure Procedure Type Code Date Perfomer Comments Ovidio méndez REVISION RHINOPLASTY 09/07/1995 [facility] ASPIRATION OF THYROID FIELD 09/07/1995 [facility] UNLISTED PROCEDURE, CASTING OR STRAPPING 03/28/2002 [facility] NONINVASIVE EAR OR PULSE OXIMETRY FOR OXYGEN SATURATION; SINGLE DETERMINATION 03/27/2002 [facility] TONSILLECTOMY, PRIMARY OR SECONDARY; AGE 12 OR OVER 05/20/1999 [facility] Social History Combined list of available smoking, tobacco, and other social history from Department of Defense and Veterans Affairs facilities. Social History Type Response Date Comment Ovidio méndez This section is an empty social history section. [facility]
--- NOTE | 2024-12-11 08:29 | MHC.PC.OV ---
Vital Signs 12/11/24 08:31 Height 5 ft 8 in Weight 173 lb BMI 26.3 BP 112/84 Blood Pressure Location Lt brachial Position Sitting Respiration 15 Pulse 58 Pulse Source Pulse Oximeter Temp 97.9 F Temp Source Oral Pulse Oximetry (%) 98 Oxygen Delivery Method Room Air Intake Visit Reasons: 3 months f/up Intake Note: Pt is here today for her 3mo. f/u Allergies No Known Allergies [No Known Allergies*] Allergy (Verified 12/11/24 08:45) seasonal Allergy (Unknown, Uncoded 12/11/24 08:45) sneezing Medication List - Last Reconciled 12/11/24 by Sveta Swenson MD ascorbic acid (vitamin C) 250 mg PO DAILY atorvastatin 10 mg PO DAILY blood sugar diagnostic (FreeStyle Lite Strips) Check fasting blood sugar twice a day before meals blood sugar diagnostic (FreeStyle Lite Strips) check blood glucose twice a day before meals blood-glucose meter (FreeStyle Lite Meter kit) Check Fasting blood sugar twice a day before meals, a.m. and p.m. cetirizine (Zyrtec) 10 mg PO DAILY PRN lancets (FreeStyle Lancets) Check fasting blood sugar before meals, a.m. and p.m. lisinopril 5 mg PO DAILY metformin 1,000 mg PO BID 90 days omega-3 acid ethyl esters 2 caps PO BID Trulicity (dulaglutide) 0.75 mg (0.5 mL) subcut QWEEK 90 days NS Tobacco use date assessed: 12/11/24 Dental Screening Dental Screen Date: 12/11/24 Did you have a dental visit in the last 12 months?: Yes Did you have a dental problem in the last 6 months where you did not have access to dental care?: No Was dental information given to patient?: Patient has dentist HPI 3 months f/up HPI Details 54-year-old lady WITH HISTORY OF diabetes mellitus, hypertension and hyperlipidemia, here today for her follow-up. She has been taking her medications as directed, but admits to having been off her diet, and has not been exercising as much lately due to some personal problems at home. Latest labs showed hemoglobin A1c is at 6.6%, and elevated triglycerides with normal LDL cholesterol and electrolytes. She has also been complaining of occasional problems swallowing, with a sensation of food getting stuck in the middle of her chest at times Has a lesion on her back that she wants to get checked, requesting referral to a poultry eviscerator.. [facility] Medical History Atypical ductal hyperplasia of left breast Dense breast tissue on mammogram Elevated liver transaminase level Postmenopausal atrophic vaginitis Dyspareunia in female Loss of libido Duodenal bulb ulcer History of uterine prolapse Seasonal allergies Type 2 diabetes mellitus with microalbuminuria, without long-term current use of insulin Essential hypertension Mixed dyslipidemia Surgical History History of tubal ligation History of tonsillectomy History of lumpectomy of left breast History of left breast biopsy History of rhinoplasty History of total vaginal hysterectomy Family History Father History of drug overdose Substance use disorder Mother Cervical cancer Substance use disorder Mental health disorder Brother Diabetes mellitus Maternal Grandmother Breast cancer Maternal Aunt Uterine cancer Social History Housing: House Alcohol intake: current Alcohol intake frequency: holidays/special occasions only Patient Tobacco Use Status: Former Tobacco user Years Smoked: 20 yrs e-Cigarette/Vaping Use: Former Use service: No Current occupational status: previously employed Cognitive needs: No Hearing needs: No Vision needs: Yes Questionnaire PHQ-9 Over the last 2 weeks, how often have you been bothered by any of the following problems? 1. Little interest or pleasure in doing things: not at all 2. Feeling down, depressed, or hopeless: not at all 3. Trouble falling or staying asleep, or sleeping too much: not at all 4. Feeling tired or having little energy: not at all 5. Poor appetite or overeating: not at all 6. Feeling bad about yourself - or that you are a failure or have let yourself or your family down: not at all 7. Trouble concentrating on things, such as reading the newspaper or watching television: not at all 8. Moving or speaking so slowly that other people could have noticed. Or the opposite - being so fidgety or restless that you have been moving around a lot more than usual: not at all 9. Thoughts that you would be better off or of hurting yourself in some way: not at all Total score: 0 Depression Screening Interpretation: Negative Depression Screening Done: Yes 20906 - PHQ-9 Billing: Yes Source: Developed by Drs. Malik Hall, Chela Worley, Arsalan Morris and colleagues, with an educational sid from [employer]. Thrive Questionnaire Date Thrive assessed: 09/04/24 I am a: Patient What is your living situation today?: I have a steady place to live Within the past 12 months, did the food you bought not last and you didn't have the money to get more?: Never true Within the past 12 months, did you worry whether your food would run out before you got money to buy more?: Never true Do you have trouble paying for medicines?: No Do you have trouble getting transportation to medical appointments?: No Do you have trouble paying your heating and electricity bill?: No Do you have trouble taking care of your child, family member or friend?: No Do you have trouble with day-to-day activities such as bathing, preparing meals, shopping, managing finances, etc.?: No Are you currently unemployed and looking for a job?: No Are you interested in more education?: No Please select the resources that you would like help with: None Currently or been in a relationship where the following occur: No concerns reported THRIVE Score: 0 ZIGGY-7 AMB Questionnaire ZIGGY-7 Date ZIGGY - 7 assessed: 05/10/24 Source: Developed by Drs. Malik Hall, Chela Worley, Arsalan Morris and colleagues, with an educational sid from [employer]. Review of Systems Const Denies body aches, Denies fatigue, Denies fever(s) and Denies weakness Eyes Reports no additional complaints ENT Reports no additional complaints Card Denies chest pain, Denies lightheadedness, Denies palpitations and Denies dyspnea Resp Denies cough and Denies dyspnea GI Reports as per HPI, Denies change in bowel habits and Denies heartburn Denies urinary frequency, Denies dysuria and Denies urinary urgency Musc Reports no additional complaints Skin/Breast Reports as per HPI, Denies breast pain and Denies breast mass Neuro Denies Sensory deficit (Neuro) and Denies weakness Psych Reports no additional complaints Endo Denies fatigue, Denies polydipsia, Denies polyuria and Denies palpitations Efrem/Lymph Reports no additional complaints Aller/Immun Reports no additional complaints Physical exam (Primary Care) Vital Signs: Last Vital Signs Temp 97.9 F 12/11/24 08:31 Pulse 58 12/11/24 08:31 Resp 15 12/11/24 08:31 BP 112/84 12/11/24 08:31 Pulse Ox 98 12/11/24 08:31 Oxygen Delivery Method Room Air 12/11/24 08:31 BMI result Body Mass Index 26.3 Tobacco/Smoking Status: Tobacco use Status Tobacco use date assessed 12/11/24 12/11/24 08:34 Patient Tobacco Use Status Former Tobacco user 12/11/24 08:29 e-Cigarette/Vaping Use Former Use 12/11/24 08:29 PHQ-9: PHQ-9 Score PHQ-9: Total score 0 12/11/24 08:44 Depression Screening Interpretation: Negative Thrive Assessment: Date of Thrive Assessment Date Thrive assessed 09/04/24 12/11/24 08:29 Currently or been in a relationship where the following occur: No concerns reported Const Other: Alert oriented x3, no acute distress noted ambulatory with normal gait HENNM Head: Yes normocephalic Ears: external ears normal Face and sinus: Yes face symmetric Mouth: Normal oral and palatal mucosa present, oropharynx normal and moist mucous membranes Eyes General: appearance normal, both eyes and all related structures Pupils: Equal, round and reactive pupils present EOM: EOMs intact bilaterally Neck Other: Supple, no lymphadenopathy, thyroid gland nonpalpable Resp Auscultation: clear to auscultation bilaterally Cardio Other: S1-S2 present regular rate with GI Inspection: Yes normal to inspection Palpation (GI): Soft to palpation, nontender, no guarding and no masses General: Yes no CVA tenderness Back/Spine/Pelvis Back: no CVA tenderness and No back tenderness Skin Other: Hyperpigmented lesion on upper back, with regular margins Neuro General: gait normal, moves all extremities, Normal light touch and pain sensation, no focal motor deficits and CN's II-XI intact bilaterally Cranial nerves: Yes Equal, round and reactive pupils present Sensory Exam: No Sensory deficit (Neuro) Extrem General: Yes full ROM, Yes no clubbing, cyanosis or edema and Yes normal gait Results Reviewed Results Reviewed: Name: Oksana Avilez Age/Sex: 54/F : 1970 Unit#: [id number] Attend Dr: Sveta Swenson MD Re12/07/24 Status: DEP REF Location: [facility] Disch: SPEC : [id number] MENA: 12/07/24 STATUS: COMP REQ : [id number] RECD: 12/07/[address]: Sveta Swenson MD COMP: 12/07/24 ENTERED: 12/07/[address] [facility] [address]: ORDERED: Met Prof Fast, AST, ALT, Lipid Panel Test Result Flag Reference Sodium 143 135-145 mmol/L Potassium 4.6 3.3-5.1 mmol/L CL 110 H 96-108 mmol/L CO2 26 22-29 mmol/L Gap 12 12-20 BUN 6 L 9-16 mg/dL Creat 0.61 0.5-1.4 mg/dL eGFR > 60 Chronic Kidney Disease: Estimated GFR < 60 mL/min/1.73m2 Severe Kidney Disease: Estimated GFR < 15 mL/min/1.73m2 FBS 103 H 60-99 mg/dL A fasting glucose from 100-125 mg/dl is considered impaired (pre-diabetes). CA 9.5 8.4-10.2 mg/dL AST (GOT) 30 5-31 U/L ALT (GPT) 29 0-31 U/L Triglyceride 241 H <150 mg/dL Desirable Triglyceride: less than 150 mg/dL Borderline High Triglyceride 150-199 mg/dL High Triglyceride: 200-499 mg/dL Very High Triglyceride: greater than or equal to 5OO mg/dL Cholesterol 161 <200 mg/dL Desirable Cholesterol: less than 200 mg/dL Borderline High Cholesterol: 200-239 mg/dL High Cholesterol: greater than 239 mg/dL LDL Calculated 72 <100 mg/dL Desirable LDL: less than 100 mg/dL Near Optimal/Above Optimal LDL: 110-129 mg/dL Borderline High LDL: 130-159 mg/dL High LDL: 160-189 mg/dL Very High LDL: greater than or equal to 190 mg/dL HDL 41 >40 mg/dL Desirable HDL: greater than 40 mg/dL Note: This HDL assay may give artificially low results in patients with liver disease. Laboratory Tests 09/04/24 12/07/24 06:44 09:15 Estimat Average Glucose 143 Hemoglobin A1c % 6.6 H Urine Creatinine 107.62 Urine Microalbumin 12.0 Microalb/Creat Ratio 11.1 Coding Level of Care Code Est Pt Level 4 (35854) Complex EM visit Add On G2211 Diagnoses Dysphagia, unspecified type R13.10 Dysphagia type: unspecified Mixed dyslipidemia E78.2 Essential hypertension I10 Type 2 diabetes mellitus with microalbuminuria, without long-term current use of insulin E11.29; R80.9 Screening for Malignant Neoplasm of Skin Z12.83 Skin lesion of back L98.9 Additional Codes PHQ-9 - 35989 - PHQ-9 Billing: Yes ([id number]) Assessment & Plan Assessment & Plan (1) Dysphagia: Code(s): R13.10 - Dysphagia, unspecified Qualifiers: Dysphagia type: unspecified Qualified Code(s): R13.10 - Dysphagia, unspecified Plan: Ordered a barium swallow for further evaluation management. Advised to do her food well, and follow it up with a glass of water, avoid wearing tight-fitting clothes, walk around after eating (2) Mixed dyslipidemia: Code(s): E78.2 - Mixed hyperlipidemia Category: Medical Plan: Reviewed recent fasting lipid profile with patient with levels within normal limits except for elevated triglycerides. . Continue taking [place] 3 fatty acid supplements and atorvastatin 10 mg daily , in addition to adherence to low-cholesterol diet and regular exercise, at least 30 minutes 3 to 4 times a week. Advised patient to make healthy food choices, eat more fruits, vegetables, whole grains, wild caught fish and low-fat dairy. Limit amount of meat and fried or fatty food products, as well as processed foods and fast foods. Follow-up scheduled with repeat fasting lipid panel in 5 months. (3) Essential hypertension: Code(s): I10 - Essential (primary) hypertension Category: Medical Plan: Blood pressure stable and controlled. Continued on current dose of lisinopril 5 mg daily (4) Type 2 diabetes mellitus with microalbuminuria, without long-term current use of insulin: Code(s): E11.29 - Type 2 diabetes mellitus with other diabetic kidney complication; R80.9 - Proteinuria, unspecified Category: Medical Plan: Diabetes mellitus controlled slipping, with hemoglobin A1c now at 6.6%. Increased Trulicity dose to 1.5 mg injected subcutaneously once a week, continued on metformin 1000 mg 1 tablet twice a day, and reinforced importance of following diabetic diet and getting regular exercise. Will see her back for follow-up after labs done in April 2025 (5) Screening for Malignant Neoplasm of Skin: Code(s): Z12.83 - Encounter for screening for malignant neoplasm of skin Plan: Referred to [facility] for further evaluation management (6) Skin lesion of back: Code(s): L98.9 - Disorder of the skin and subcutaneous tissue, unspecified Plan: Referred to [facility] for further evaluation management Orders: Orders FL barium swallow 12/11/24 R13.10 - Dysphagia, unspecified Lipid Panel 04/22/25 E11.29 - Type 2 diabetes mellitus with other diabetic kidney complication, E78.2 - Mixed hyperlipidemia, I10 - Essential (primary) hypertension, R80.9 - Proteinuria, unspecified Hemoglobin A1c 04/22/25 E11.29 - Type 2 diabetes mellitus with other diabetic kidney complication, E78.2 - Mixed hyperlipidemia, I10 - Essential (primary) hypertension, R80.9 - Proteinuria, unspecified Alanine Aminotransferase 04/22/25 E11.29 - Type 2 diabetes mellitus with other diabetic kidney complication, E78.2 - Mixed hyperlipidemia, I10 - Essential (primary) hypertension, R80.9 - Proteinuria, unspecified Basic Metabolic Panel Fasting 04/22/25 E11.29 - Type 2 diabetes mellitus with other diabetic kidney complication, E78.2 - Mixed hyperlipidemia, I10 - Essential (primary) hypertension, R80.9 - Proteinuria, unspecified Aspartate Amino Transferase 04/22/25 E11.29 - Type 2 diabetes mellitus with other diabetic kidney complication, E78.2 - Mixed hyperlipidemia, I10 - Essential (primary) hypertension, R80.9 - Proteinuria, unspecified Referrals Dermatology Referral L98.9 - Disorder of the skin and subcutaneous tissue, unspecified, Z12.83 - Encounter for screening for malignant neoplasm of skin Medications: Changed From Trulicity (dulaglutide) 0.75 mg (0.5 mL) subcut QWEEK 90 days 6 mL 0RF NS E11.29 - Type 2 diabetes mellitus with other diabetic kidney complication, R80.9 - Proteinuria, unspecified To dulaglutide 1.5 mg (0.5 mL) subcut QWEEK 90 days 6.5 mL 4RF E11.29 - Type 2 diabetes mellitus with other diabetic kidney complication, R80.9 - Proteinuria, unspecified
[2024-12-11 08:31] VITALS: BP 112/84; PULSE 58; RESP 15; TEMP 36.6; O2SAT 98; BMI 26.3
== END 2024-12-11 09:17 | disposition home or self-care (01) ==
LOC: HO.HMCC 08:02
PROVIDERS: PCP Internal Medicine; Visit Provider Internal Medicine
DX: R13.10 Dysphagia, unspecified (principal); E78.2 Mixed hyperlipidemia; I10 Essential (primary) hypertension; E11.29 Type 2 diabetes mellitus with other diabetic kidney complication; R80.9 Proteinuria, unspecified; Z12.83 Encounter for screening for malignant neoplasm of skin; L98.9 Disorder of the skin and subcutaneous tissue, unspecified

== ENCOUNTER → 2024-12-11 08:01 | Outpatient (BNVA) | payer OTHER, SELFPAY | PROVIDERS: PCP Internal Medicine; Visit Provider Internal Medicine | DX: I10 Essential (primary) hypertension (principal); E78.5 Hyperlipidemia, unspecified; E11.29 Type 2 diabetes mellitus with other diabetic kidney complication; E78.1 Pure hyperglyceridemia; R13.10 Dysphagia, unspecified; E78.2 Mixed hyperlipidemia; R80.9 Proteinuria, unspecified; L98.9 Disorder of the skin and subcutaneous tissue, unspecified | CPT/HCPCS: 96127; 99212 ==

== ENCOUNTER 2025-01-16 13:01 | Outpatient (REF) | payer OTHER, SELFPAY ==
--- NOTE | ~2025-01-16 | MM_ITS ---
EXAMINATION: MM DIAGNOSTIC DIGITAL BREAST TOMOSYNTHESIS, BILATERAL CLINICAL INFORMATION: Two-year follow-up for faint calcifications in the lower central right breast. COMPARISON: Mammography: Comparison is made with relevant prior exams. TECHNIQUE: Digital breast mammography with tomosynthesis is performed in both the craniocaudal and mediolateral oblique views along with computer-aided detection (CAD). FINDINGS: The breasts are heterogeneously dense, which may obscure small masses (ACR BI-RADS breast composition Category c). Faint grouped calcifications in the lower central right breast are not significant changed from priors dating back for 2 years on magnification views and therefore benign. No suspicious masses calcifications or other abnormal findings. Postsurgical changes are stable. Results are provided to the patient at time of visit by the technologist. MM/MM tomosynthesis diagnostic BI IMPRESSION: No mammographic evidence of malignancy. Recommend follow-up breast MRI as per prior recommendations after canceled MRI guided core needle biopsy. MRI would need to be ordered by the patient's providing clinician. These recommendations were discussed with the patient. ASSESSMENT: BI-RADS BI-RADS 2 - Benign Findings RECOMMENDATION: 1 year F/U This patient's information was entered into a reminder system with a target due date for their next mammogram. Electronically signed by: Nevaeh Wolf DO 01/16/2025 03:03 PM EDT
== END 2025-01-16 13:02 | disposition home or self-care (01) ==
LOC: HO.MAMMO 13:01
PROVIDERS: PCP Internal Medicine; Visit Provider Internal Medicine
DX: R92.1 Mammographic calcification found on diagnostic imaging of breast (principal)
CPT/HCPCS: 77062; 77066

== ENCOUNTER → 2025-01-16 13:30 | Outpatient (BNV) | payer OTHER, SELFPAY | PROVIDERS: PCP Internal Medicine; Visit Provider Internal Medicine | DX: R92.1 Mammographic calcification found on diagnostic imaging of breast (principal) | CPT/HCPCS: 77062; 77066 ==

== ENCOUNTER 2025-03-14 08:39 | Outpatient (REF) | payer OTHER, SELFPAY ==
--- NOTE | ~2025-03-14 | FL_ITS ---
EXAMINATION: XR BARIUM SWALLOW CLINICAL INFORMATION: Dysphagia COMPARISON: None available. TECHNIQUE: Routine barium swallow was performed in upright view with thick barium and barium coated saltine crackers. Thin barium was administered in prone lying position. FINDINGS: Following oral administration of thick barium there is normal propagation of bolus from the oral cavity through the pharynx, esophagus into stomach. No laryngeal penetration or aspiration seen. On oral administration of barium coated saltine crackers is normal oral mastication and propagation of bolus from the oral cavity, through the pharynx, esophagus into stomach without obstruction, narrowing or stricture. There is no retention in the valleculae or piriform sinuses. No laryngeal penetration or aspiration seen. On placing patient prone lying and oral demonstration of thin barium there is widely patent esophagus without obstruction narrowing. There is small sliding hiatal hernia but no gastroesophageal reflux seen in supine and prone position. FLUOROSCOPY TIME: 2 minutes 27 seconds DOSE AREA PRODUCT: 1697 uGy-m2 (microgray-meter squared) FL/FL barium swallow IMPRESSION: Small sliding hiatal hernia without gastroesophageal reflux. Rest of the barium swallow exam is unremarkable. Electronically signed by: Eze Mendez MD 03/14/2025 02:33 PM EDT
== END 2025-03-14 08:40 | disposition home or self-care (01) ==
LOC: HO.XRAY 08:39
PROVIDERS: PCP Internal Medicine; Visit Provider Internal Medicine
DX: R13.10 Dysphagia, unspecified (principal)
CPT/HCPCS: 74220

== ENCOUNTER → 2025-03-14 08:41 | Outpatient (BNV) | payer OTHER, SELFPAY | PROVIDERS: PCP Internal Medicine; Visit Provider Radiology Diagnostic Radiology | DX: R13.10 Dysphagia, unspecified (principal) | CPT/HCPCS: 74240 ==

== ENCOUNTER 2025-03-22 09:43 | Outpatient (AMB) | payer OTHER, SELFPAY ==
--- NOTE | 2025-03-22 09:43 | A.OFFPC_ITS ---
Intake Visit Reasons: imaging follow up Allergies No Known Allergies (No Known Allergies*) Allergy (Verified 12/11/24 08:45) seasonal Allergy (Unknown, Uncoded 12/11/24 08:45) sneezing Medication List - Last Reconciled 03/24/25 by Sveta Swenson MD atorvastatin 10 mg PO DAILY blood sugar diagnostic (FreeStyle Lite Strips) Check fasting blood sugar twice a day before meals blood sugar diagnostic (FreeStyle Lite Strips) check blood glucose twice a day before meals blood-glucose meter (FreeStyle Lite Meter kit) Check Fasting blood sugar twice a day before meals, a.m. and p.m. cetirizine (Zyrtec) 10 mg PO DAILY PRN dulaglutide 1.5 mg (0.25 mL) subcut QWEEK 90 days famotidine 40 mg PO DAILY 3 months lancets (FreeStyle Lancets) Check fasting blood sugar before meals, a.m. and p.m. lisinopril 5 mg PO DAILY metformin 1,000 mg PO BID 90 days omega-3 acid ethyl esters 2 caps PO BID Tobacco use date assessed: 12/11/24 Dental Screening Dental Screen Date: 12/11/24 HPI imaging follow up HPI Details 55-year-old lady here today for follow-u p on barium swallow results. Has been having experiencing occasional tightness on liver chest after eating with sensation of food not sliding down. Her barium swallow study showed a s mall sliding hiatal hernia without gastroesophageal reflux, rest of the barium swallow exam was unremarkable. She then mentioned that after taking antibiotics after a dental procedure, sensation of occasional burning pain in the middle of her chest has resolved. She is a diabetic currently on metformin a 1000 mg 1 taken 1 tablet twice a day and on dulaglutide 1.5 mg injected once weekly. Last hemoglobin A1c in November was 6.6%, needs a refill her dulaglutide. [facility] Medical History Skin cancer screening Heartburn symptom Sliding hiatal hernia Atypical ductal hyperplasia of left breast Dense breast tissue on mammogram Elevated liver transaminase level Postmenopausal atrophic vaginitis Dyspareunia in female Loss of libido Duodenal bulb ulcer History of uterine prolapse Seasonal allergies Type 2 diabetes mellitus with microalbuminuria, without long-term current use of insulin Essential hypertension Mixed dyslipidemia Surgical History History of tubal ligation History of tonsillectomy History of lumpectomy of left breast History of left breast biopsy History of rhinoplasty History of total vaginal hysterectomy Family History Father History of drug overdose Substance use disorder Mother Cervical cancer Substance use disorder Mental health disorder Brother Diabetes mellitus Maternal Grandmother Breast cancer Maternal Aunt Uterine cancer Social History Housing: House Alcohol intake: current Alcohol intake frequency: holidays/special occasions only Patient Tobacco Use Status: Former Tobacco user Years Smoked: 20 yrs e-Cigarette/Vaping Use: Former Use service: No Current occupational status: previously employed Cognitive needs: No Hearing needs: No Vision needs: Yes Questionnaire Thrive Questionnaire Date Thrive assessed: 09/04/24 AUDIT C Alcohol Use Questionnaire (AUDIT-C) 1. How often do you have a drink containing alcohol?: Never 3. How often do you have six or more drinks on one occasion?: Never Total Score: 0 Score Reviewed/Action Taken: Yes ZIGGY-7 AMB Questionnaire ZIGGY-7 Date ZIGGY - 7 assessed: 03/22/25 Feeling nervous, anxious, or on edge: 0 = Not at all Not being able to stop or control worryin = Not at all Worrying too much about different things: 0 = Not at all Trouble relaxin = Not at all Being so restless that it is hard to sit still: 0 = Not at all Becoming easily annoyed or irritable: 0 = Not at all Feeling afraid as if something awful might happen: 0 = Not at all Total ZIGGY-7 score (0-4 normal; 5-9 mild; 10-14 moderate; 15-21 severe): 0 Source: Developed by Drs. Malik Hall, Chela Worley, Arsalan Morris and colleagues, with an educational sid from [employer] ZIGGY-7 Assessment Billing ZIGGY-7 Assessment Tool: ZIGGY-7 Assessment 16352 Review of Systems Const Denies body aches, Denies fatigue, Denies fever(s) and Denies weakness Eyes Reports no additional complaints ENT Reports no additional complaints Card Denies chest pain, Denies lightheadedness, Denies palpitations and Denies dyspnea Resp Denies cough and Denies dyspnea GI Reports as per HPI, Denies change in bowel habits and Denies heartburn Denies urinary frequency, Denies dysuria and Denies urinary urgency Musc Reports no additional complaints Skin/Breast Reports as per HPI, Denies breast pain and Denies breast mass Neuro Denies Sensory deficit (Neuro) and Denies weakness Psych Reports no additional complaints Endo Denies fatigue, Denies polydipsia, Denies polyuria and Denies palpitations Efrem/Lymph Reports no additional complaints Aller/Immun Reports no additional complaints Physical exam (Primary Care) Tobacco/Smoking Status: Tobacco use Status Tobacco use date assessed 12/11/24 03/22/25 09:45 Patient Tobacco Use Status Former Tobacco user 03/22/25 09:45 e-Cigarette/Vaping Use Former Use 03/22/25 09:45 Thrive Assessment: Date of Thrive Assessment Date Thrive assessed 09/04/24 03/22/25 09:45 Neuro Sensory Exam: No Sensory deficit (Neuro) Telehealth Telehealth Telehealth Platform: [employer] Location of provider rendering services: practice address Location of patient: address on file Patient Identification confirmed using: Name, : Yes Telehealth method: video Patient verbally consented to treatment: Yes Patient verbally consented to billing insurance company: Yes Patient informed of any privacy concerns related to visit: Yes Minutes spent on Phone/Video with Pt.: 15 Coding Level of Care Code Tele Est Pt Level 4 (97838) Diagnoses Sliding hiatal hernia K44.9 Heartburn symptom R12 Type 2 diabetes mellitus with microalbuminuria, without long-term current use of insulin E11.29; R80.9 Additional Codes ZIGGY-7 Assessment Billing - ZIGGY-7 Assessment Tool: ZIGGY-7 Assessment 24657 ([id number]) Assessment & Plan Assessment & Plan (1) Sliding hiatal hernia: Code(s): K44.9 - Diaphragmatic hernia without obstruction or gangrene Category: Medical Plan: Advised to do her food well, and drink a glass of water after eating, avoid sitting down or lying down right away after eating, to walk at least for 10 minutes after a meal. Avoid wearing tight around the waist (2) Heartburn symptom: Code(s): R12 - Heartburn Category: Medical Plan: Prescription sent for famotidine mg per tablet to take 1 tablet once a day an hour before eating for at least 2 months and as needed afterwards (3) Type 2 diabetes mellitus with microalbuminuria, without long-term current use of insulin: Code(s): E11.29 - Type 2 diabetes mellitus with other diabetic kidney complication; R80.9 - Proteinuria, unspecified Category: Medical Plan: Continue dulaglutide and metformin at same dose. Repeat fasting labs in April so weak prior to next appointment Medications: New famotidine take 1 hour before a meal 40 mg PO DAILY 90 tabs 1RF 3 months Changed From dulaglutide 1.5 mg (0.5 mL) subcut QWEEK 90 days 6.5 mL 4RF E11.29 - Type 2 diabetes mellitus with other diabetic kidney complication, R80.9 - Proteinuria, unspecified To dulaglutide 1.5 mg (0.25 mL) subcut QWEEK 3.25 mL 4RF 90 days E11.29 - Type 2 diabetes mellitus with other diabetic kidney complication, R80.9 - Proteinuria, unspecified
== END 2025-03-22 11:08 | disposition home or self-care (01) ==
LOC: HO.HMCC 09:43
PROVIDERS: PCP Internal Medicine; Visit Provider Internal Medicine
DX: K44.9 Diaphragmatic hernia without obstruction or gangrene (principal); R12 Heartburn; E11.29 Type 2 diabetes mellitus with other diabetic kidney complication; R80.9 Proteinuria, unspecified

== ENCOUNTER → 2025-03-22 09:43 | Outpatient (BNVA) | payer OTHER, SELFPAY | PROVIDERS: PCP Internal Medicine; Visit Provider Internal Medicine | DX: K44.9 Diaphragmatic hernia without obstruction or gangrene (principal); R12 Heartburn; E11.29 Type 2 diabetes mellitus with other diabetic kidney complication; R80.9 Proteinuria, unspecified; Z79.84 Long term (current) use of oral hypoglycemic drugs; Z13.39 Encounter for screening examination for other mental health and behavioral disorders | CPT/HCPCS: 96127 ==

== ENCOUNTER 2025-05-28 06:15 | Outpatient (REF) | payer OTHER, SELFPAY ==
[2025-05-28 11:00] LABS: Alanine Aminotransferase 30 U/L (0-31); Anion Gap 15 (12-20); Aspartate Amino Transferase 32 U/L (5-31); Blood Urea Nitrogen 11 mg/dL (9-16); Calcium 9.5 mg/dL (8.4-10.2); Carbon Dioxide 27 mmol/L (22-29); Chloride 108 mmol/L (96-108); Cholesterol 157 mg/dL (<200); Estimated Glomerular Filt Rate > 60; HDL Cholesterol 44 mg/dL (>40); Potassium 4.5 mmol/L (3.3-5.1); Sodium 145 mmol/L (135-145); Triglycerides 137 mg/dL (<150)
== END 2025-05-28 06:16 | disposition home or self-care (01) ==
LOC: HO.HMGCLDS 06:15
PROVIDERS: PCP Internal Medicine; Visit Provider Internal Medicine
DX: E11.29 Type 2 diabetes mellitus with other diabetic kidney complication (principal); E78.2 Mixed hyperlipidemia; R80.9 Proteinuria, unspecified; I10 Essential (primary) hypertension
CPT/HCPCS: 36415; 80048; 80061; 83036; 84450; 84460

== ENCOUNTER 2025-06-03 13:44 | Outpatient (AMB) | payer OTHER, SELFPAY ==
[2025-06-03 14:02] VITALS: BP 135/70; PULSE 77; RESP 16; TEMP 36.6; O2SAT 98; BMI 26.6
--- NOTE | 2025-06-03 14:02 | A.OFFPC_ITS ---
Vital Signs 06/03/25 14:02 Height 5 ft 8 in Weight 175 lb BMI 26.6 BP 135/70 Blood Pressure Location Lt brachial Position Sitting Respiration 16 Pulse 77 Pulse Source Pulse Oximeter Temp 97.8 F Temp Source Oral Pulse Oximetry (%) 98 Oxygen Delivery Method Room Air Intake Visit Reasons: Annual PE Intake Note: Pt is here today for her PE Allergies No Known Allergies (No Known Allergies*) Allergy (Verified 06/03/25 14:35) seasonal Allergy (Unknown, Uncoded 06/03/25 14:35) sneezing Medication List - Last Reconciled 06/03/25 by Sveta Swenson MD ascorbic acid (vitamin C) 500 mg PO DAILY atorvastatin 10 mg PO DAILY blood sugar diagnostic (FreeStyle Lite Strips) Check fasting blood sugar twice a day before meals blood sugar diagnostic (FreeStyle Lite Strips) check blood glucose twice a day before meals blood-glucose meter (FreeStyle Lite Meter kit) Check Fasting blood sugar twice a day before meals, a.m. and p.m. cetirizine (Zyrtec) 10 mg PO DAILY PRN famotidine 40 mg PO DAILY 3 months lancets (FreeStyle Lancets) Check fasting blood sugar before meals, a.m. and p.m. lisinopril 5 mg PO DAILY metformin 1,000 mg PO BID 90 days omega-3 acid ethyl esters 2 caps PO BID Trulicity (dulaglutide) 3 mg (0.5 mL) subcut QWEEK 3 months NS Tobacco use date assessed: 06/03/25 Dental Screening Dental Screen Date: 06/03/25 HPI Annual PE HPI Details The patient is a 55-year-old female with past medical history Type 2 Diabetes Mellitus , dyslipidemia, hypertension, here today for her physical ex am. Latest fasting labs showed fasting blood glucose was noted to be 122 mg/dL, and her HbA1c has improved to 6.3% form 6.6%. The patient is currently on Trulicity and has been considering switching to Ozempic or Mounjaro for better weight management and glycemic control. The patient's hyperlipidemia is well-managed, with triglycerides and LDL cholesterol levels within the desired range. Hypertension stable and controlled on lisinopril. The patient has a history of a breast mass, which was previously biopsied and monitored with mammograms and MRIs. She experienced a severe reaction during a previous MRI, which led to the procedure being incomplete. Has an appointment for her screening mammogram next year in January. Last colonoscopy was done in [address] Magallanes, with polyp removed, due for a repeat colonoscopy in 2026 [facility] Medical History Skin cancer screening Heartburn symptom Sliding hiatal hernia Atypical ductal hyperplasia of left breast Dense breast tissue on mammogram Elevated liver transaminase level Postmenopausal atrophic vaginitis Dyspareunia in female Loss of libido Duodenal bulb ulcer History of uterine prolapse Seasonal allergies Type 2 diabetes mellitus with microalbuminuria, without long-term current use of insulin Essential hypertension Mixed dyslipidemia Surgical History History of tubal ligation History of tonsillectomy History of lumpectomy of left breast History of left breast biopsy History of rhinoplasty History of total vaginal hysterectomy Family History Father History of drug overdose Substance use disorder Mother Cervical cancer Substance use disorder Mental health disorder Brother Diabetes mellitus Maternal Grandmother Breast cancer Maternal Aunt Uterine cancer Social History Housing: House Alcohol intake: current Alcohol intake frequency: holidays/special occasions only Patient Tobacco Use Status: Former Tobacco user Years Smoked: 20 yrs e-Cigarette/Vaping Use: Former Use service: No Current occupational status: previously employed Cognitive needs: No Hearing needs: No Vision needs: Yes Questionnaire PHQ-9 Over the last 2 weeks, how often have you been bothered by any of the following problems? 1. Little interest or pleasure in doing things: not at all 2. Feeling down, depressed, or hopeless: not at all 3. Trouble falling or staying asleep, or sleeping too much: not at all 4. Feeling tired or having little energy: not at all 5. Poor appetite or overeating: not at all 6. Feeling bad about yourself - or that you are a failure or have let yourself or your family down: not at all 7. Trouble concentrating on things, such as reading the newspaper or watching television: not at all 8. Moving or speaking so slowly that other people could have noticed. Or the opposite - being so fidgety or restless that you have been moving around a lot more than usual: not at all 9. Thoughts that you would be better off or of hurting yourself in some way: not at all Total score: 0 Depression Screening Interpretation: Negative Depression Screening Done: Yes Source: Developed by Drs. Malik Hall, Chela Worley, Arsalan Morris and colleagues, with an educational sid from [employer]. Thrive Questionnaire Date Thrive assessed: 09/04/24 I am a: Patient What is your living situation today?: I have a steady place to live Within the past 12 months, did the food you bought not last and you didn't have the money to get more?: Never true Within the past 12 months, did you worry whether your food would run out before you got money to buy more?: Never true Do you have trouble paying for medicines?: No Do you have trouble getting transportation to medical appointments?: No Do you have trouble paying your heating and electricity bill?: No Do you have trouble taking care of your child, family member or friend?: No Do you have trouble with day-to-day activities such as bathing, preparing meals, shopping, managing finances, etc.?: No Are you currently unemployed and looking for a job?: No Are you interested in more education?: No Please select the resources that you would like help with: None Currently or been in a relationship where the following occur: No concerns reported THRIVE Score: 0 AUDIT C Alcohol Use Questionnaire (AUDIT-C) 2. How many drinks containing alcohol do you have on a typical day when you are drinking?: 1 or 2 Total Score: 0 ZIGGY-7 AMB Questionnaire ZIGGY-7 Date ZIGGY - 7 assessed: 03/22/25 Feeling nervous, anxious, or on edge: 0 = Not at all Not being able to stop or control worryin = Not at all Worrying too much about different things: 0 = Not at all Trouble relaxin = Not at all Being so restless that it is hard to sit still: 0 = Not at all Becoming easily annoyed or irritable: 0 = Not at all Feeling afraid as if something awful might happen: 0 = Not at all Total ZIGGY-7 score (0-4 normal; 5-9 mild; 10-14 moderate; 15-21 severe): 0 Source: Developed by Drs. Malik Hall, Chela Worley, Arsalan Morris and colleagues, with an educational sid from [employer]. Review of Systems Const Denies body aches, Denies fatigue, Denies fever(s) and Denies weakness Eyes Reports no additional complaints ENT Reports no additional complaints Card Denies chest pain, Denies lightheadedness, Denies palpitations and Denies dyspnea Resp Denies cough and Denies dyspnea GI Reports as per HPI, Denies change in bowel habits and Denies heartburn Denies urinary frequency, Denies dysuria and Denies urinary urgency Musc Reports no additional complaints Skin/Breast Reports as per HPI, Denies breast pain and Denies breast mass Neuro Denies Sensory deficit (Neuro) and Denies weakness Psych Reports no additional complaints Endo Denies fatigue, Denies polydipsia, Denies polyuria and Denies palpitations Efrem/Lymph Reports no additional complaints Aller/Immun Reports no additional complaints Physical exam (Primary Care) Vital Signs: Last Vital Signs Temp 97.8 F 06/03/25 14:02 Pulse 77 06/03/25 14:02 Resp 16 06/03/25 14:02 BP 135/70 06/03/25 14:02 Pulse Ox 98 06/03/25 14:02 Oxygen Delivery Method Room Air 06/03/25 14:02 BMI result Body Mass Index 26.6 Tobacco/Smoking Status: Tobacco use Status Tobacco use date assessed 06/03/25 06/03/25 14:07 Patient Tobacco Use Status Former Tobacco user 06/03/25 14:07 e-Cigarette/Vaping Use Former Use 06/03/25 14:07 PHQ-9: PHQ-9 Score PHQ-9: Total score 0 06/09/25 01:13 Depression Screening Interpretation: Negative Thrive Assessment: Date of Thrive Assessment Date Thrive assessed 09/04/24 06/03/25 14:07 Currently or been in a relationship where the following occur: No concerns reported Const Other: Alert oriented x3, no acute distress noted ambulatory with normal gait HENMT Head: Yes normocephalic Ears: external ears normal Face and sinus: Yes face symmetric Mouth: Normal oral and palatal mucosa present, oropharynx normal and moist mu cous membranes Eyes General: appearance normal, both eyes and all related structures Neck Other: Supple, no lymphadenopathy, thyroid gland nonpalpable Chest Chest palpation & inspection: normal inspection of the chest Breast/axilla palpation: normal palpation of the breasts Resp Auscultation: clear to auscultation bilaterally Cardio Other: S1-S2 present regular rate and rhythm GI Inspection: Yes normal to inspection Palpation (GI): Soft to palpation, nontender, no guarding and no masses General: Yes no CVA tenderness Back/Spine/Pelvis Back: no CVA tenderness and No back tenderness Skin General skin exam: no rashes or lesions noted Neuro General: gait normal, moves all extremities, Normal light touch and pain sensation, no focal motor deficits and CN's II-XI intact bilaterally Sensory Exam: No Sensory deficit (Neuro) Extrem General: Yes full ROM, Yes no clubbing, cyanosis or edema and Yes normal gait Psych Appearance: grossly normal and well kempt Mental Status: mental status grossly normal Speech and movement: Normal speech and movement present Affect: normal affect Results Reviewed Results Reviewed: den: Oksana Avilez Age/Sex: 55/F : 1970 Unit#: [id number] Attend Dr: Sveta Swenson MD Re05/28/25 Status: DEP REF Location: [facility] Disch: SPEC : [id number] MENA: 05/28/25 STATUS: COMP REQ : [id number] RECD: 05/28/[address]: Sveta Swenson MD COMP: 05/28/25 ENTERED: 05/28/25 [facility] DR: ORDERED: Met Prof Fast, AST, ALT, Lipid Panel Test Result Flag Reference Sodium 145 135-145 mmol/L Potassium 4.5 3.3-5.1 mmol/L CL 108 96-108 mmol/L CO2 27 22-29 mmol/L Gap 15 12-20 BUN 11 9-16 mg/dL Creat 0.59 0.5-1.4 mg/dL eGFR > 60 Chronic Kidney Disease: Estimated GFR < 60 mL/min/1.73m2 Severe Kidney Disease: Estimated GFR < 15 mL/min/1.73m2 FBS 122 H 60-99 mg/dL A fasting glucose from 100-125 mg/dl is considered impaired (pre-diabetes). CA 9.5 8.4-10.2 mg/dL AST (GOT) 32 H 5-31 U/L ALT (GPT) 30 0-31 U/L Triglyceride 137 <150 mg/dL Desirable Triglyceride: less than 150 mg/dL Borderline High Triglyceride 150-199 mg/dL High Triglyceride: 200-499 mg/dL Very High Triglyceride: greater than or equal to 5OO mg/dL Cholesterol 157 <200 mg/dL Desirable Cholesterol: less than 200 mg/dL Borderline High Cholesterol: 200-239 mg/dL High Cholesterol: greater than 239 mg/dL LDL Calculated 86 <100 mg/dL Desirable LDL: less than 100 mg/dL Near Optimal/Above Optimal LDL: 110-129 mg/dL Borderline High LDL: 130-159 mg/dL High LDL: 160-189 mg/dL Very High LDL: greater than or equal to 190 mg/dL HDL 44 >40 mg/dL Desirable HDL: greater than 40 mg/dL Note: This HDL assay may give artificially low results in patients with liver disease. Laboratory Tests 09/04/24 12/07/24 05/28/25 06:44 09:15 06:30 Estimat Average Glucose 143 134 Hemoglobin A1c % 6.6 H 6.3 H Urine Creatinine 107.62 Urine Microalbumin 12.0 Microalb/Creat Ratio 11.1 Coding Level of Care Code Est Pt Prev Care 40-64y(04041) Diagnoses Mixed dyslipidemia E78.2 Essential hypertension I10 Type 2 diabetes mellitus with microalbuminuria, without long-term current use of insulin E11.29; R80.9 Annual visit for general adult medical examination with abnormal findings Z00.01 Assessment & Plan Assessment & Plan (1) Mixed dyslipidemia: Code(s): E78.2 - Mixed hyperlipidemia Category: Medical Plan: Fasting lipids are within normal limits. Continue atorvastatin 10 mg daily and Mcintyre 3 fatty acid supplements 2 capsules twice a day (2) Essential hypertension: Code(s): I10 - Essential (primary) hypertension Category: Medical Plan: Continue lisinopril 5 mg daily (3) Type 2 diabetes mellitus with microalbuminuria, without long-term current use of insulin: Code(s): E11.29 - Type 2 diabetes mellitus with other diabetic kidney complication; R80.9 - Proteinuria, unspecified Category: Medical Plan: Recent lab results reviewed with patient, with sugar and hemoglobin A1c stable and at goal. Continued on metformin 1000 mg 1 tablet twice a day discontinue Trulicity and switched to Mounjaro, at a dose of 2.5 mg injected subcutaneously once a week. Discussed possible side effects of medication. continue to check fasting blood sugar at home, maintain log and bring to next appointment for review. Reinforced diabetic diet and regular exercise with patient. Counseled regarding importance of yearly diabetes retinopathy screening. Patient advised to inspect feet daily, for any signs of injury, callus or infection. Compliance with diet and regular exercise again stressed. Blood pressure goal is less than 130/80, goal LDL is less than 100 and goal hemoglobin A1c is less than 7% follow-up appointment made in--6-months, after fasting labs done. (4) Annual visit for general adult medical examination with abnormal findings: Code(s): Z00.01 - Encounter for general adult medical examination with abnormal findings Plan: Recent lab results discussed with patient.. Recommended dental visit every 6 months and yearly eye exams screening for retinopathy. Take adequate calcium in diet and vitamin-D 3 at 2000 IU per cap once a day, in addition to weight- bearing exercises to help maintain good muscle tone and weight control. Up-to-date with her screening mammogram, already has an appointment next year, up-to-date with her colonoscopy screening, due again in 2026. Reminded to get her yearly flu vaccine and COVID booster, up-to-date with her pneumonia vaccination, shingles vaccine and Tdap Medications: New Mounjaro (tirzepatide) for 4 weeks 2.5 mg (0.5 mL) subcut QWEEK 6 mL 1RF 3 months NS E11.29 - Type 2 diabetes mellitus with other diabetic kidney complication, E78.2 - Mixed hyperlipidemia, I10 - Essential (primary) hypertension, R80.9 - Proteinuria, unspecified Refilled metformin 1,000 mg PO BID 180 tabs 4RF 90 days E11.29 - Type 2 diabetes mellitus with other diabetic kidney complication, R80.9 - Proteinuria, unspecified Discontinued Trulicity Discontinued Reason: Doctor's Order 3 mg (0.5 mL) subcut QWEEK 3 months 6 mL 1RF NS E11.29 - Type 2 diabetes mellitus with other diabetic kidney complication, R80.9 - Proteinuria, unspecified
== END 2025-06-03 14:57 | disposition home or self-care (01) ==
LOC: HO.HMCC 13:45
PROVIDERS: PCP Internal Medicine; Visit Provider Internal Medicine
DX: Z00.01 Encounter for general adult medical examination with abnormal findings (principal); E78.2 Mixed hyperlipidemia; I10 Essential (primary) hypertension; E11.29 Type 2 diabetes mellitus with other diabetic kidney complication; R80.9 Proteinuria, unspecified